=== PATIENT | male | born 1940 | race Caucasian/White ===

== ENCOUNTER → 2017-06-25 08:47 | Outpatient (CLI) | payer OTHER, SELFPAY ==
--- NOTE | 2017-06-29 12:58 | PM.PFT.1 ---
Pulmonary Function Test Referral & Results Date Patient Seen: 06/25/17 Requesting provider: Elier Phelps Results: The spirometry demonstrates an FVC of 3.23 L which is 76% of predicted. The FEV1 was measured at 2.58 L which is 85% of predicted. The FEV1/FVC ratio was 80 which is 110% of predicted. Following the administration of bronchodilator there was a 14% improvement in FEV1 and a 93% improvement in FEF 25-75%. Lung volumes show an SVC of 4.06 L which is 89% of predicted. The diffusing capacity was measured at 19.80 which is 58 percent of predicted. No hemoglobin value was provided, so no correction for potential anemia could be made, if appropriate. The maximum voluntary ventilation was normal. Interpretation: This study demonstrates mild obstructive lung disease with some evidence of benefit following bronchodilator administration, particularly in small airway flow as demonstrated by the improvement in FEF 25-75% There is a moderate reduction in diffusing capacity suggesting significant disease at the capillary alveolar level Clinical correlation suggested
== END ==
PROVIDERS: Family Provider Internal Medicine; PCP Internal Medicine; Visit Provider Internal Medicine Cardiovascular Disease
DX: R06.02 Shortness of breath (principal)
CPT/HCPCS: 94010; 94060; 94726; 94729

== ENCOUNTER → 2017-07-16 11:05 | Outpatient (CLI) | payer OTHER, SELFPAY ==
--- NOTE | 2017-07-16 | DI.CT.S_ITS ---
PROCEDURE: CT HEAD/BRAIN WO CON INDICATIONS: Memory loss TECHNIQUE: Noncontrast 4.5 mm thick angled axial sections acquired from the foramen magnum to the vertex, with coronal and sagittal reformats. For radiation dose reduction, the following was used: automated exposure control, adjustment of mA and/or kV according to patient size. COMPARISON: [facility], CT, HEAD WITHOUT CONTRAST, 06/05/2014, 12:13. [facility], CT, HEAD WITHOUT CONTRAST, 03/27/2012, 20:46. FINDINGS: Image quality: Excellent. CSF spaces: Basal cisterns are patent. No extra-axial fluid collections. The ventricles are symmetric in size and shape. Brain: No intracranial bleeds or masses. There is cerebral volume loss for age, with resultant ventricular and sulcal prominence. There are periventricular and deep white matter chronic small vessel ischemic changes. There is intracranial internal carotid artery atherosclerosis. Skull and face: Calvarium and visualized facial bones appear intact, without suspicious lesions. Sinuses: Visualized sinuses and mastoids are clear. IMPRESSION: No acute process. Volume loss and small vessel ischemic disease. Dictated by: Clarice Lucero M.D. on 07/16/2017 at 12:06 Approved by: Clarice Lucero M.D. on 07/16/2017 at 12:06
== END ==
PROVIDERS: Family Provider Internal Medicine; PCP Internal Medicine; Visit Provider Physician Assistant
DX: R41.3 Other amnesia (principal)
CPT/HCPCS: 70450

== ENCOUNTER → 2017-07-23 10:26 | Outpatient (CLI) | payer OTHER, SELFPAY | PROVIDERS: Family Provider Internal Medicine; PCP Internal Medicine; Visit Provider Physician Assistant | DX: I48.91 Unspecified atrial fibrillation (principal); Z95.2 Presence of prosthetic heart valve | CPT/HCPCS: 36415; 85610 ==

== ENCOUNTER → 2017-09-08 09:50 | Outpatient (CLI) | payer OTHER, SELFPAY ==
[2017-09-08 11:38] LABS: Add Manual Diff / Slide Review NO; Eosinophils Percent Auto 2.6 % (2-4); Hematocrit 29.4 % (41-53); Hemoglobin 9.3 g/dL (13.5-17.5); Lymphocytes Percent Auto 37.2 % (25-40); Mean Corpuscular HGB Conc 31.5 % (30-36); Mean Corpuscular Hemoglobin 24.1 PG (26-34); Mean Corpuscular Volume 76.5 fL (80-100); Monocytes Percent Auto 14.7 % (3-14); Neutrophils Absolute Auto 3400 /uL (3000-5900); Neutrophils Percent Auto 44.5 % (50-75); Platelet Count 316 X10^3/uL (150-400); Red Blood Cell Count 3.84 X10^6/uL (4.5-5.9); Red Cell Distribution Width 17.4 % (11.6-14.8); White Blood Cell Count 7.7 X10^3/uL (4.5-11.0)
[2017-09-08 12:51] LABS: Alanine Aminotransferase 21 IU/L (21-72); Albumin 4.2 g/dL (3.5-5.0); Albumin Globulin Ratio 1.6 (1.0-2.8); Alkaline Phosphatase 81 U/L (38-126); Aspartate Aminotransferase 22 IU/L (17-59); BUN Creatinine Ratio 13.5 (6-22); Bilirubin Total 0.5 mg/dL (0.2-1.3); Blood Urea Nitrogen 23 mg/dL (9-20); Calcium 9.7 mg/dL (8.4-10.2); Carbon Dioxide 24 mmol/L (22-32); Chloride 108 mmol/L (98-107); Estimated Glomerular Filt Rate 39.1 mL/min (>60); Globulin 2.7 g/dL (1.7-4.1); Glucose 88 mg/dL (80-110); HEMOLYSIS < 15 (0-50); Magnesium 2.1 mg/dL (1.6-2.3); Sodium 144 mmol/L (137-145); Total Protein 6.9 g/dL (6.3-8.2)
[2017-09-08 13:18] LABS: Thyroid Stimulating Hormone 1.46 uIU/mL (0.47-4.68)
== END ==
PROVIDERS: Family Provider Internal Medicine; PCP Internal Medicine; Visit Provider Internal Medicine Cardiovascular Disease
DX: I48.0 Paroxysmal atrial fibrillation (principal); I49.3 Ventricular premature depolarization; I10 Essential (primary) hypertension
CPT/HCPCS: 36415; 80053; 83735; 83880; 84443; 85025

== ENCOUNTER → 2017-10-04 11:32 | Outpatient (CLI) | payer OTHER, SELFPAY ==
[2017-10-04 12:12] LABS: Add Manual Diff / Slide Review NO; Basophils Percent Auto 1.3 % (0-2); Eosinophils Percent Auto 1.9 % (2-4); Hematocrit 24.9 % (41-53); Hemoglobin 7.8 g/dL (13.5-17.5); Lymphocytes Percent Auto 29.2 % (25-40); Mean Corpuscular HGB Conc 31.4 % (30-36); Mean Corpuscular Hemoglobin 22.6 PG (26-34); Mean Corpuscular Volume 71.8 fL (80-100); Monocytes Percent Auto 12.1 % (3-14); Neutrophils Absolute Auto 4400 /uL (3000-5900); Neutrophils Percent Auto 55.5 % (50-75); Platelet Count 346 X10^3/uL (150-400); Red Blood Cell Count 3.47 X10^6/uL (4.5-5.9); Red Cell Distribution Width 17.6 % (11.6-14.8)
[2017-10-04 13:54] LABS: HEMOLYSIS < 15 (0-50); Iron 13 ug/dL (49-181)
[2017-10-04 14:06] LABS: Percent Iron Saturation 3 % (20-50); Total Iron Binding Capacity 450 ug/dL (261-462); Transferrin 364 mg/dL (206-381)
[2017-10-04 14:16] LABS: BUN Creatinine Ratio 16.9 (6-22); Blood Urea Nitrogen 27 mg/dL (9-20); Calcium 9.3 mg/dL (8.4-10.2); Carbon Dioxide 25 mmol/L (22-32); Chloride 108 mmol/L (98-107); Estimated Glomerular Filt Rate 41.9 mL/min (>60); Glucose 99 mg/dL (80-110); HEMOLYSIS < 15 (0-50); Potassium 4.7 mmol/L (3.4-5.1); Sodium 142 mmol/L (137-145)
== END ==
PROVIDERS: Family Provider Internal Medicine; PCP Internal Medicine; Visit Provider Internal Medicine
DX: D64.9 Anemia, unspecified (principal); R06.00 Dyspnea, unspecified
CPT/HCPCS: 36415; 80048; 83540; 83550; 83880; 85025

== ENCOUNTER → 2017-10-08 13:39 | Outpatient (CLI) | payer OTHER, SELFPAY ==
[2017-10-08 14:10] LABS: Reticulocyte Count, Percent 2.2 % (0.87-2.60)
[2017-10-08 14:28] LABS: HEMOLYSIS < 15 (0-50); Iron 12 ug/dL (49-181)
[2017-10-08 14:50] LABS: Percent Iron Saturation 3 % (20-50); Total Iron Binding Capacity 467 ug/dL (261-462); Transferrin 373 mg/dL (206-381)
[2017-10-08 15:04] LABS: Ferritin 8.3 ng/mL (17.9-464)
== END ==
PROVIDERS: Family Provider Internal Medicine; PCP Internal Medicine; Visit Provider Internal Medicine
DX: D64.9 Anemia, unspecified (principal); R06.00 Dyspnea, unspecified
CPT/HCPCS: 36415; 82728; 83540; 83550; 85045

== ENCOUNTER 2017-10-14 10:01 | Observation (INO) | payer OTHER, SELFPAY ==
[2017-10-14] VITALS (14 sets, daily range): BP systolic 108–141; BP diastolic 50–90; PULSE 60–81; RESP 17–24; TEMP 36.3–36.8; O2SAT 92–100; BMI 26.7; BMI 26.2
--- NOTE | 2017-10-14 10:05 | ED.WEAKNESS ---
HPI - Weakness General Chief complaint: Weakness Stated complaint: bp way down Time Seen by Provider: 10/14/17 10:05 Source: patient Mode of arrival: ambulatory Limitations: no limitations History of Present Illness HPI Narrative: Patient is a 77-year-old male sent over from his primary care doctor's office for worsening weakness over the past couple months. Patient has been anemic in the past. His primary doctor was concerned for worsening anemia. Patient states that he has been told that he has been anemic. He is on Coumadin secondary to a prior history of coronary artery bypass graft and pacemaker placement. His last dose of Coumadin was last evening. He denies any change in his bowels. No black colored stools no dark-colored stools. No vomiting. Patient has been evaluated by his lemon grower and also psychiatric attendant and states that his heart and lungs are working ?fine? according to the patient. He states he does not know why his blood counts were low and his primary doctor does not know. His last colonoscopy was 10-12 years ago with polyp but he was told that there were no cancers. Has not had a repeat since then. Related Data Home Medications Medication Instructions Recorded Confirmed aspirin 81 mg PO QDAY #0 06/11/12 10/14/17 atorvastatin 40 mg PO DAILY 10/14/17 10/14/17 omeprazole 20 mg PO DAILY 10/14/17 10/14/17 oxycodone 5 mg PO TID 10/14/17 10/14/17 oxycodone 20 mg PO BID 10/14/17 10/14/17 warfarin 10/14/17 Allergies Allergy/AdvReac Type Severity Reaction Status Date / Time duloxetine [DULOXETINE] Allergy Intermediate ALMOST Verified 10/14/17 10:06 PASSED OUT ciprofloxacin [CIPROFLOXACIN] Allergy Unknown Verified 10/14/17 10:06 penicillin V [PENICILLIN V] Allergy Unknown DIZZY Verified 10/14/17 10:06 Review of Systems Constitutional Reports fatigue, Denies fever(s), Denies headache(s), Reports lethargy and Reports malaise ENT Ears, Nose, Mouth, and Throat: Denies vertigo, Denies dizziness and Denies headache(s) Cardiovascular Denies chest pain, Denies syncope, Denies palpitations and Reports dyspnea Respiratory Denies cough, Denies hemoptysis, Denies pain on inspiration, Reports dyspnea and Denies wheezing Gastrointestinal Gastrointestinal: Denies abdominal pain, Denies melena, Denies hematochezia, Denies change in stool character, Denies constipation, Denies nausea and Denies vomiting Genitourinary Denies dysuria and Denies flank pain Musculoskeletal Denies myalgias, Denies arthralgias and Denies muscle cramps Integumentary/Breasts Denies rash Neurologic Denies confusion, Denies vertigo, Denies dizziness, Denies syncope and Denies headache(s) Psychiatric Denies confusion Endocrine Reports fatigue and Denies palpitations Hematologic/Lymphatic Denies easy bleeding and Denies easy bruising Allergic/Immunologic Denies wheezing [facility] Medical History Coronary artery disease (Acute) Hypertension (Acute) Surgical History Hx of CABG (Acute) Social History Smoking Status: Former smoker Exam Initial Vital Signs Initial Vital Signs: Vital Signs Temperature 97.3 F L 10/14/17 10:06 Pulse Rate 75 10/14/17 10:06 Respiratory Rate 22 10/14/17 10:06 Pulse Oximetry 100 10/14/17 10:06 Const General: cooperative, healthy appearing, comfortable, well developed, well groomed and No acute distress Orientation: alert, awake and oriented x3 HENMT Head: normal to inspection and normocephalic Resp Effort & Inspection: normal respiratory effort Auscultation: clear to auscultation bilaterally Cardio Palpation: normal PMI Rate: regular rate Rhythm: regular rhythm Pulses: radial pulses present GI Inspection: normal to inspection and non-distended Palpation: soft, No firm, No guarding and No tender Rectal Exam: normal sphincter tone and heme negative stool Back/Spine/Pelvis Back: No CVA tenderness Skin Lesions: no lesions Rashes: no rashes Neuro General: alert, awake and oriented x3 Cognition: normal cognition Speech: speech normal Gait: normal gait Motor: muscle tone normal throughout Sensory Exam: no sensory deficits noted Extrem General: normal to inspection, capillary refill normal and No edema Psych Appearance: grossly normal and well kempt Course Orders Ordered: ED Orders 10/14/17 10:06 EKG-12 Lead Stat 08/23/18 10:07 XR chest 1V Stat 10/14/17 10:10 B Type Natriuretic Peptide Stat Complete Blood Count AUTO DIFF Stat Comprehensive Metabolic Panel Stat Lipase Stat Packed Cells Stat Partial Thromboplastin Time Stat Prothrombin Time INR Stat Troponin I Stat Type and Screen Stat Vital Signs - 8 hr 10/14/17 10:06 10/14/17 10:10 10/14/17 10:33 Temperature 97.3 F L Pulse Rate 75 67 69 Respiratory Rate 22 18 24 Blood Pressure [Left Arm] 134/70 H 118/69 Pulse Oximetry 100 100 100 10/14/17 11:11 10/14/17 11:40 10/14/17 11:42 Temperature Pulse Rate 66 72 66 Respiratory Rate 17 23 17 Blood Pressure [Left Arm] 118/80 129/57 H 139/57 H Pulse Oximetry 100 94 100 MDM - Weakness Lab Data Result diagrams: 10/14/17 10:10 10/14/17 10:10 Lab Results 10/14/17 10/14/17 10/14/17 Range/Units 10:10 10:10 10:10 WBC 7.8 (4.5-11.0) X10^3/uL RBC 3.24 L (4.5-5.9) X10^6/uL Hgb 7.1 L (13.5-17.5) g/dL Hct 22.4 L (41-53) % MCV 70.0 L (80-100) fL MCH 22.0 L (26-34) PG MCHC 31.8 (30-36) % RDW 18.4 H (11.6-14.8) % Plt Count 359 (150-400) X10^3/uL Neut % (Auto) 52.1 (50-75) % Lymph % (Auto) 32.0 (25-40) % [place] % (Auto) 13.3 (3-14) % Eos % (Auto) 1.6 L (2-4) % Baso % (Auto) 1.0 (0-2) % Neut # (Auto) 4100 (6072-8949) /uL PT 31.7 H (10.1-12.7) SECONDS INR 2.9 H (0.9-1.3) APTT 34 (26.4-36.2) SECONDS Sodium (137-145) mmol/L Potassium (3.4-5.1) mmol/L Chloride (98-107) mmol/L Carbon Dioxide (22-32) mmol/L BUN (9-20) mg/dL Creatinine (0.66-1.25) mg/dL Estimated GFR (>60) mL/min BUN/Creatinine Ratio (6-22) Glucose (80-110) mg/dL Calcium (8.4-10.2) mg/dL Total Bilirubin (0.2-1.3) mg/dL AST (17-59) IU/L ALT (21-72) IU/L Alkaline Phosphatase (38-126) U/L Troponin I (0.01-0.034) ng/mL B-Natriuretic Peptide (<100) Total Protein (6.3-8.2) g/dL Albumin (3.5-5.0) g/dL Globulin (1.7-4.1) g/dL Albumin/Globulin Ratio (1.0-2.8) Lipase (23-300) U/L Blood Type B Positive Antibody Screen Negative Crossmatch See Detail 10/14/17 10/14/17 Range/Units 10:10 10:10 WBC (4.5-11.0) X10^3/uL RBC (4.5-5.9) X10^6/uL Hgb (13.5-17.5) g/dL Hct (41-53) % MCV (80-100) fL MCH (26-34) PG MCHC (30-36) % RDW (11.6-14.8) % Plt Count (150-400) X10^3/uL Neut % (Auto) (50-75) % Lymph % (Auto) (25-40) % [place] % (Auto) (3-14) % Eos % (Auto) (2-4) % Baso % (Auto) (0-2) % Neut # (Auto) (1631-0602) /uL PT (10.1-12.7) SECONDS INR (0.9-1.3) APTT (26.4-36.2) SECONDS Sodium 142 (137-145) mmol/L Potassium 4.5 (3.4-5.1) mmol/L Chloride 109 H (98-107) mmol/L Carbon Dioxide 20 L (22-32) mmol/L BUN 26 H (9-20) mg/dL Creatinine 1.60 H (0.66-1.25) mg/dL Estimated GFR 41.9 L (>60) mL/min BUN/Creatinine Ratio 16.3 (6-22) Glucose 110 (80-110) mg/dL Calcium 9.3 (8.4-10.2) mg/dL Total Bilirubin 0.5 (0.2-1.3) mg/dL AST 24 (17-59) IU/L ALT 19 L (21-72) IU/L Alkaline Phosphatase 75 (38-126) U/L Troponin I < 0.012 (0.01-0.034) ng/mL B-Natriuretic Peptide 160.0 H (<100) Total Protein 7.1 (6.3-8.2) g/dL Albumin 4.3 (3.5-5.0) g/dL Globulin 2.8 (1.7-4.1) g/dL Albumin/Globulin Ratio 1.5 (1.0-2.8) Lipase 87 (23-300) U/L Blood Type Antibody Screen Crossmatch Imaging Data Chest x-ray: Radiologist's impression: [address] [address] XRay Report Signed Patient: Roberto Polo KMR#: [id number] : 8Acct:[id number] Age/Sex: 77 / MDate of Service: 10/14/17 Loc: ED Accession Number: [id number] Procedure: XR chest 1V Ordering Provider: Azael Ann D.O. PROCEDURE: XR CHEST 1V INDICATIONS: SHORTNESS OF BREATH TECHNIQUE: One view of the chest was acquired. COMPARISON: [facility], , CHEST 2 VIEW, 06/05/2014, 10:37. FINDINGS: Surgical changes and devices: Median sternotomy with CABG and dual-lead permanent pacemaker. Lungs and pleura: No pleural effusions or pneumothorax. Lungs are clear. Mediastinum: Mediastinal contours appear normal. Heart size is normal. Aorta is calcified and mildly tortuous. Bones and chest wall: No suspicious bony lesions. Overlying soft tissues appear unremarkable. IMPRESSION: Postoperative changes, no acute cardiopulmonary abnormality. Dictated by: Yariel tGz M.D. on 10/14/2017 at 10:29 Approved by: Yariel Gtz M.D. on 10/14/2017 at 10:3 ECG Data Attestation: I personally reviewed and interpreted this ECG as follows: Prior ECG tracings: not available for review Interpretation: atrial paced Rate is 67 Occasional PVCs Normal axis No ST T wave changes MDM Narrative Medical decision making narrative: Patient again anemic today. Has not hypotensive. Is alert and oriented x3. Uncertain as the exact etiology of his anemia. His last dose of Coumadin was last evening. He is Hemoccult negative. Has a benign abdominal exam. Is short of breath however has had normal pulmonary function test recently. I suspect that many of his symptoms are related to his anemia. Discussed the case with Dr. Millan with Internal Medicine who will admit the patient for transfusion and further workup. I discussed this with the patient. Blood consent was signed and placed on chart. Will start transfusing 2 units of packed red blood cells here in the emergency department. Patient and was at bedside expressed understanding and agreement with plan of being admitted to the hospital. Discharge Plan Departure Patient Disposition: Admitted as Observation Clinical Impression: Anemia, Coronary artery disease Admit Date/Time: 10/14/17 11:41 Admit Provider: Quinton Mercado
--- NOTE | 2017-10-14 10:17 | PC.NURSE ---
Hx of anemia. States worsening dysnea over past few months. Has need pneumo and cardio MD's for same. States those functions are good. Explained that need for blood cells to carry the oxygen
[2017-10-14 10:23] LABS: Add Manual Diff / Slide Review NO; Eosinophils Percent Auto 1.6 % (2-4); Hematocrit 22.4 % (41-53); Hemoglobin 7.1 g/dL (13.5-17.5); Mean Corpuscular HGB Conc 31.8 % (30-36); Monocytes Percent Auto 13.3 % (3-14); Neutrophils Absolute Auto 4100 /uL (3000-5900); Neutrophils Percent Auto 52.1 % (50-75); Platelet Count 359 X10^3/uL (150-400); Red Blood Cell Count 3.24 X10^6/uL (4.5-5.9); Red Cell Distribution Width 18.4 % (11.6-14.8); White Blood Cell Count 7.8 X10^3/uL (4.5-11.0)
[2017-10-14 10:30] LABS: INR 2.9 (0.9-1.3); Prothrombin Time 31.7 SECONDS (10.1-12.7)
[2017-10-14 10:33] LABS: PTT Partial Thromboplastin Tim 34 SECONDS (26.4-36.2)
[2017-10-14 10:34] LABS: Alanine Aminotransferase 19 IU/L (21-72); Albumin 4.3 g/dL (3.5-5.0); Albumin Globulin Ratio 1.5 (1.0-2.8); Alkaline Phosphatase 75 U/L (38-126); Aspartate Aminotransferase 24 IU/L (17-59); BUN Creatinine Ratio 16.3 (6-22); Bilirubin Total 0.5 mg/dL (0.2-1.3); Blood Urea Nitrogen 26 mg/dL (9-20); Calcium 9.3 mg/dL (8.4-10.2); Carbon Dioxide 20 mmol/L (22-32); Chloride 109 mmol/L (98-107); Estimated Glomerular Filt Rate 41.9 mL/min (>60); Globulin 2.8 g/dL (1.7-4.1); Glucose 110 mg/dL (80-110); HEMOLYSIS < 15 (0-50); Lipase 87 U/L (23-300); Potassium 4.5 mmol/L (3.4-5.1); Sodium 142 mmol/L (137-145); Total Protein 7.1 g/dL (6.3-8.2)
[2017-10-14 10:47] LABS: Troponin I < 0.012 ng/mL (0.01-0.034)
--- NOTE | 2017-10-14 13:25 | PM.HP.1 ---
History of Present Illness Date Patient Seen: 10/14/17 Time Patient Seen: 12:25 Chief complaint: bp way down Narrative: Kirt malone 77-year-old gentleman was sent from Dr. Shaikh office with a history of progressive tiredness fatigue weight gain of 20 lb shortness of breath on minimal exertion over the last few months but particularly worse in the last few days He has been seen in the cylinder head assembler's office not too long ago according to him and had workup done and was told everything was fine he also had pulmonary function test and that was said to be normal as well He has a history of anemia being on Coumadin and he had the iron supplements but apparently his hemoglobin is dropped from 9 a few months ago to 7 now he denies any melena hematemesis or any abdominal pain but he does complain of abdominal bloating no change in his appetite though is deliberately not eating much because he does not want to gain any more weight Patient History Medical History Coronary artery disease (Acute) Hypertension (Acute) Surgical History Hx of CABG (Acute) Family & Social History Family History: Reviewed 10/14/17 by Quinton Mercado MD Tobacco & Substance use: Smoking Status Former smoker alcohol intake frequency holiday/special occasion Substance Use Type does not use Meds Home Medications Medication Instructions Recorded Confirmed Type aspirin 81 mg PO QDAY #0 06/11/12 10/14/17 History atorvastatin 40 mg PO DAILY 10/14/17 10/14/17 History omeprazole 20 mg PO DAILY 10/14/17 10/14/17 History oxycodone 5 mg PO TID 10/14/17 10/14/17 History oxycodone 20 mg PO BID 10/14/17 10/14/17 History warfarin 10/14/17 History Allergies Allergy/AdvReac Type Severity Reaction Status Date / Time duloxetine [DULOXETINE] Allergy Intermediate ALMOST Verified 10/14/17 10:06 PASSED OUT ciprofloxacin [CIPROFLOXACIN] Allergy Unknown Verified 10/14/17 10:06 penicillin V [PENICILLIN V] Allergy Unknown DIZZY Verified 10/14/17 10:06 Review of Systems Review of Systems He does not complain of any chest pain or wheezing cough any change in bowel habits All 12 systems were reviewed with no positive symptoms other than the 1 in the history of present illness Exam Vital Signs (past 8 hours): - 10/14/17 10:06 10/14/17 10:10 10/14/17 10:33 Temperature 97.3 F L Pulse Rate 75 67 69 Respiratory Rate 22 18 24 Blood Pressure [Left Arm] 134/70 H 118/69 Pulse Oximetry 100 100 100 10/14/17 11:11 10/14/17 11:40 10/14/17 11:42 Temperature Pulse Rate 66 72 66 Respiratory Rate 17 23 17 Blood Pressure [Left Arm] 118/80 129/57 H 139/57 H Pulse Oximetry 100 94 100 10/14/17 12:34 Temperature Pulse Rate 81 Respiratory Rate 18 Blood Pressure [Left Arm] 128/82 H Pulse Oximetry 92 Oxygen Delivery Method Room Air Const General: cooperative, healthy appearing, comfortable and well developed Orientation: alert, awake and oriented x3 HENMT Head: normal to inspection Ears: hearing grossly normal bilaterally Nose: external nose normal Face and sinus: normal facial exam Eyes General: appearance normal, both eyes and all related structures Eyelids: eyelids normal Conjunctivae: conjunctivae normal Sclera: sclerae normal Pupils: PERRL EOM: EOM intact bilaterally Neck Neck: normal visual inspection Thyroid: thyroid normal Resp Effort & Inspection: normal respiratory effort and able to speak in complete sentences Auscultation: clear to auscultation bilaterally Cardio Palpation: normal PMI Rate: regular rate Rhythm: regular rhythm Heart Sounds: S1 normal and S2 normal GI Inspection: normal to inspection Palpation: soft and no hepatosplenomegaly Skin General: no rashes or lesions noted Neuro General: alert, awake and oriented x3 Cranial Nerves: CN's II-XI intact bilaterally Cognition: normal cognition Speech: speech normal Motor: muscle tone normal throughout Extrem Other: edema + [employer] Psych Appearance: grossly normal Speech and Movement: speech and movement normal Mood: congruent mood Affect: normal affect Attitude: cooperative Thought Process: normal Thought Content: normal Judgment: judgment good Objective Labs Result Diagrams: 10/14/17 10:10 10/14/17 10:10 Labs: Laboratory Results - last 24 hr 10/14/17 10/14/17 10/14/17 10:10 10:10 10:10 WBC 7.8 RBC 3.24 L Hgb 7.1 L Hct 22.4 L MCV 70.0 L MCH 22.0 L MCHC 31.8 RDW 18.4 H Plt Count 359 Neut % (Auto) 52.1 Lymph % (Auto) 32.0 [place] % (Auto) 13.3 Eos % (Auto) 1.6 L Baso % (Auto) 1.0 Neut # (Auto) 4100 PT 31.7 H INR 2.9 H APTT 34 Sodium Potassium Chloride Carbon Dioxide BUN Creatinine Estimated GFR BUN/Creatinine Ratio Glucose Calcium Total Bilirubin AST ALT Alkaline Phosphatase Troponin I B-Natriuretic Peptide Total Protein Albumin Globulin Albumin/Globulin Ratio Lipase Blood Type B Positive Antibody Screen Negative Crossmatch See Detail 10/14/17 10/14/17 10:10 10:10 WBC RBC Hgb Hct MCV MCH MCHC RDW Plt Count Neut % (Auto) Lymph % (Auto) [place] % (Auto) Eos % (Auto) Baso % (Auto) Neut # (Auto) PT INR APTT Sodium 142 Potassium 4.5 Chloride 109 H Carbon Dioxide 20 L BUN 26 H Creatinine 1.60 H Estimated GFR 41.9 L BUN/Creatinine Ratio 16.3 Glucose 110 Calcium 9.3 Total Bilirubin 0.5 AST 24 ALT 19 L Alkaline Phosphatase 75 Troponin I < 0.012 B-Natriuretic Peptide 160.0 H Total Protein 7.1 Albumin 4.3 Globulin 2.8 Albumin/Globulin Ratio 1.5 Lipase 87 Blood Type Antibody Screen Crossmatch Assessment & Plan Plan: Assessment/Plan Narrative: 1. Progressive fatigue cardiac and pulmonary causes low likelihood as he has been recently worked up by his cylinder head assembler 2. Severe anemia likely due to chronic blood loss due to being on Coumadin Is getting blood transfusion started in the ER will get the hemoglobin up to 10 g in view of his underlying coronary artery disease status post CABG 3.Chronic atrial fibrillation Weight gain most likely due to edema and echocardiogram if not done within the last 6 months will be ordered and abdominal workup may also be needed to rule out liver because of edema Time Spent With Patient Time with patient: Greater than 35 minutes
--- NOTE | 2017-10-14 14:21 | PC.ADMIT ---
Admission Note: Patient to room 103 from ER, walked from stretcher to bed, steady on feet. Alert and oriented x3. Denies dizziness, reports feeling like I can't get enough air in. Oxygen sats 98% RA. First unit of blood started and is infusing without issue. Oriented to room and to call light/bed/tv controls. Instructed to use call light for standby-assist when up - acknowledges understanding. The patient,Roberto Polo,77 y/o, was given written information regarding hospital policies, unit procedures and contact persons. Patient's smoking status: Former smoker. Vital Signs - 8 hr 10/14/17 10:06 10/14/17 10:10 10/14/17 10:33 Temperature 97.3 F L Pulse Rate 75 67 69 Respiratory Rate 22 18 24 Blood Pressure Blood Pressure [Left Arm] 134/70 H 118/69 Pulse Oximetry 100 100 100 10/14/17 11:11 10/14/17 11:40 10/14/17 11:42 Temperature Pulse Rate 66 72 66 Respiratory Rate 17 23 17 Blood Pressure Blood Pressure [Left Arm] 118/80 129/57 H 139/57 H Pulse Oximetry 100 94 100 10/14/17 12:34 10/14/17 13:25 10/14/17 13:40 Temperature 97.9 F 97.9 F Pulse Rate 81 78 79 Respiratory Rate 18 20 18 Blood Pressure 108/76 141/90 H Blood Pressure [Left Arm] 128/82 H Pulse Oximetry 92 98
[2017-10-14] MEDS: PANTOPRAZOLE 20 MG TABLET PO (16:49)
[2017-10-14] MEDS: FUROSEMIDE 20 MG/2 ML VIAL IV (17:21)
[2017-10-14 21:22] LABS: Add Manual Diff / Slide Review NO; Basophils Percent Auto 1.1 % (0-2); Hematocrit 29.3 % (41-53); Hemoglobin 9.6 g/dL (13.5-17.5); Lymphocytes Percent Auto 34.4 % (25-40); Mean Corpuscular HGB Conc 32.9 % (30-36); Mean Corpuscular Hemoglobin 23.9 PG (26-34); Mean Corpuscular Volume 72.6 fL (80-100); Monocytes Percent Auto 14.8 % (3-14); Neutrophils Absolute Auto 4500 /uL (3000-5900); Neutrophils Percent Auto 47.7 % (50-75); Platelet Count 301 X10^3/uL (150-400); Red Blood Cell Count 4.03 X10^6/uL (4.5-5.9); Red Cell Distribution Width 20.8 % (11.6-14.8); White Blood Cell Count 9.3 X10^3/uL (4.5-11.0)
[2017-10-14 21:39] LABS: Anisocytosis 2+; Microcytosis 2+
--- NOTE | 2017-10-14 21:42 | PC.NURSE ---
cathryn note Pt denies SOB at rest. 2 units PRBCs infused with good tolerance. Pt ate 100% evening meal. large volume urine output after 20 mg IV Lasix.
[2017-10-14] MEDS: ATORVASTATIN 20 MG TABLET 40 MG PO (21:53)
[2017-10-14] MEDS: OXYCODONE ER 10 MG TAB 20 MG PO (21:53)
[2017-10-15] VITALS (12 sets, daily range): BP systolic 91–139; BP diastolic 43–76; PULSE 57–91; RESP 14–20; TEMP 36.2–37.3; O2SAT 95–98
--- NOTE | 2017-10-15 01:41 | PC.NURSE ---
Ore Washer Note: Alert, oriented X3. Steady on his feet. Voiding in urinal without difficulty. Saline lock in place in rt wrist. Pt denies pain or discomfort, and is resting in bed.
[2017-10-15] MEDS: PANTOPRAZOLE 20 MG TABLET PO (06:41)
[2017-10-15] MEDS: OXYCODONE ER 10 MG TAB 20 MG PO ×2 (08:36→22:35)
--- NOTE | 2017-10-15 09:08 | CM.DANOTE ---
DCP: Case received, EMR reviewed and met with patient. DCP template completed with information currently available. Patient is a 77 year old male who admitted yesterday to the care of the hospitalist team. PCP: Dr. Mcmillan. Payer: confirmed: Medicare/[employer], Self Pay Patient came to hospital due to symptoms of weakness. Was noted to have decreased blood pressure, secondary to anemia. Patient had driven himself here in his vehicle. P: Plan is for patient to return home when stable. DCP will continue to assess. Loretta Holder RN/[employer]
[2017-10-15] MEDS: IRON SUCROSE 100 MG in SODIUM CHLORIDE 0.9% 100 ML 420 ML IV ×2 (10:59→11:25)
--- NOTE | 2017-10-15 11:11 | PC.NURSE ---
pt showered and ambulated in ICU [place]. tolerated well. sitting in chair and reported wooziness. BP 114/34. Dr. Mercado in to see pt. iron infusing initiated.
--- NOTE | 2017-10-15 12:20 | P.DS_ITS ---
History of Present Illness Date Patient Seen: 10/16/17 Time Patient Seen: 11:14 Chief complaint: bp way down Narrative: Kirt malone 77-year-old gentleman was sent from Dr. Shaikh office with a history of progressive tiredness fatigue weight gain of 20 lb shortness of breath on minimal exertion over the last few months but particularly worse in the last few days He has been seen in the parts counter clerk's office not too long ago according to him and had workup done and was told everything was fine he also had pulmonary function test and that was said to be normal as well He has a history of anemia being on Coumadin and he has iron defeciency but apparently his hemoglobin is dropped from 9 a few months ago to 7 now he denies any melena hematemesis or any abdominal pain but he does complain of abdominal bloating no change in his appetite though is deliberately not eating much because he does not want to gain any more weight He gives a hx of IBS symptoms cycle now and then according to him Discharge Providers Date of admission: 10/14/17 11:41 Primary care physician: Pee Cornell MD Discharge provider: Laz Mercado MD Summary Discharge Diagnosis: 1. Severe anemia requiring blood transfusion iron deficiency profile on iron studies no obvious overt bleeding or GI bleed confirm 2. History of coronary artery disease status post CABG about 2 years ago 3. Chronic atrial fibrillation also has cardiac pacemaker 4. History of irritable bowel syndrome 5. Chronic low back pain requiring OxyContin long-acting insulin short-acting Hospital Course: This very pleasant gentleman was sent from Dr. CORNELL'S office with a progressive fatigue tiredness and was found to be quite pale and anemic his hemoglobin that dropped from 9-7 within the last few months though he does not complain of any melena hematemesis or other overt bleeding He has a history of colon polyps that is found in on a colonoscopy 10 years ago has not had any follow-up colonoscopy yet After admission he had 2 units of blood transfusion his hemoglobin up to 9.6 and this morning he feels much better overall not as fatigued he had a shower and feels even better now He is leery about going on oral iron supplement because he thinks lot of his people that she knows of with [facility] INR had more trouble than help Addendum UE was given an IV Venofer 200 mg X 2 DAYS HGB IS STAYING AT 10 GM THE PATIENT WOULD REQUIRE WORKUP WITH UPPER GI AND LOWER GI ENDOSCOPY THE LAST COLONOSCOPY WAS 10 YEARS AGO PATIENT DOES NOT WANT THAT DONE AT THIS TIME AN INPATIENT AND WILL BE DISCUSSING IT WITH DR. CORNELL WHEN HE SEES HIM IN A WEEK' S TIME Exam Vital Signs (past 8 hours): - 10/15/17 04:23 10/15/17 08:00 10/15/17 09:19 Temperature 97.3 F L 97.9 F Pulse Rate 57 L 57 L Respiratory Rate 16 16 Blood Pressure 121/56 H 115/53 L Pulse Oximetry 97 97 95 Oxygen Delivery Method Room Air Oxygen Flow Rate 0 Const General: cooperative, healthy appearing and comfortable Orientation: alert, awake and oriented x3 HENMT Head: normal to inspection Ears: hearing grossly normal bilaterally Nose: external nose normal Face and sinus: normal facial exam Eyes General: appearance normal, both eyes and all related structures Eyelids: eyelids normal Conjunctivae: conjunctivae normal Sclera: sclerae normal Pupils: PERRL EOM: EOM intact bilaterally Neck Neck: normal visual inspection Thyroid: thyroid normal Chest Other: HAS PACEMAKER IN SITU Resp Effort & Inspection: normal respiratory effort, able to speak in complete sentences, no respiratory distress and no use of accessory muscles Auscultation: clear to auscultation bilaterally GI Inspection: normal to inspection Palpation: soft and no hepatosplenomegaly Skin General: no rashes or lesions noted Neuro General: alert, awake, oriented x3 and no meningeal signs Cranial Nerves: CN's II-XI intact bilaterally Cognition: normal cognition Motor: muscle tone normal throughout Objective Labs Result Diagrams: 10/16/17 04:40 10/15/17 14:00 Labs: Laboratory Results - last 24 hr 10/14/17 10/14/17 10/14/17 10:10 14:10 21:11 WBC 9.3 RBC 4.03 L Hgb 9.6 L Hct 29.3 L MCV 72.6 L MCH 23.9 L MCHC 32.9 RDW 20.8 H Plt Count 301 Neut % (Auto) 47.7 L Lymph % (Auto) 34.4 [place] % (Auto) 14.8 H Eos % (Auto) 2.0 Baso % (Auto) 1.1 Neut # (Auto) 4500 RBC Morphology Not Reportable Anisocytosis 2+ H Microcytosis 2+ H Nasal Screen MRSA (PCR) Negative for mrsa Blood Type B Positive Antibody Screen Negative Crossmatch See Detail Discharge Plan Discharge Plan Patient Disposition: Home Provider Discharge Instructions Diet: Regular Activity: AD SARA Discharge Data Primary Care Provider: Pee Cornell Attending Provider: Quinton Mercado Admit Date/Time: 10/14/17 11:41 Quality VTE Deep Vein Thrombosis/Pulmonary Embolism Present on Admission: No
--- NOTE | 2017-10-15 13:15 | P.PN_ITS ---
Subjective Date Patient Seen: 10/15/17 Time Patient Seen: 10:08 Interval history: This gentleman admitted from Dr. Shaikh office with a history of progressive fatigue and tiredness this found to be anemic workup in the office is reveal iron deficiency though he does not complain of any overt bleeding or melena He is a colonoscopy 10 years ago or so to have some polyp she has not had any follow-up colonoscopies He reports having some IBS irritable bowel syndrome with cycles on often these apparently in the off period now This morning he reports feeling better than when he came in after the blood transfusions for later on after his OxyContin he started feeling woozy dizzy to go back to bed from his chair Exam Vital Signs (past 8 hours): - 10/15/17 08:00 10/15/17 09:19 10/15/17 12:14 Temperature 97.9 F 98.4 F Pulse Rate 57 L 72 Respiratory Rate 16 16 Blood Pressure 115/53 L 128/74 H Pulse Oximetry 97 95 97 Oxygen Delivery Method Room Air Oxygen Flow Rate 0 Const General: cooperative, healthy appearing, comfortable and well developed Orientation: alert, awake and oriented x3 HENMT Head: normal to inspection Ears: hearing grossly normal bilaterally Nose: external nose normal Face and sinus: normal facial exam Eyes General: appearance normal, both eyes and all related structures Eyelids: eyelids normal Conjunctivae: conjunctivae normal Sclera: sclerae normal Pupils: PERRL EOM: EOM intact bilaterally Neck Neck: normal visual inspection Thyroid: thyroid normal Resp Effort & Inspection: normal respiratory effort, able to speak in complete sentences, no respiratory distress and no use of accessory muscles Auscultation: clear to auscultation bilaterally Cardio Rate: regular rate Rhythm: regular rhythm Heart Sounds: S1 normal and S2 normal GI Inspection: normal to inspection Palpation: soft and no hepatosplenomegaly Skin General: no rashes or lesions noted Neuro General: alert, awake and oriented x3 Cranial Nerves: CN's II-XI intact bilaterally Cognition: normal cognition Gait: normal gait Motor: muscle tone normal throughout Extrem Other: nil edema Psych Mental Status: mental status grossly normal Affect: normal affect Attitude: cooperative Thought Process: normal Thought Content: normal Judgment: judgment good Objective Labs Result Diagrams: 10/14/17 21:11 10/14/17 10:10 Labs: Laboratory Results - last 24 hr 08/10/14/17 10/14/17 10:10 14:10 21:11 WBC 9.3 RBC 4.03 L Hgb 9.6 L Hct 29.3 L MCV 72.6 L MCH 23.9 L MCHC 32.9 RDW 20.8 H Plt Count 301 Neut % (Auto) 47.7 L Lymph % (Auto) 34.4 [place] % (Auto) 14.8 H Eos % (Auto) 2.0 Baso % (Auto) 1.1 Neut # (Auto) 4500 RBC Morphology Not Reportable Anisocytosis 2+ H Microcytosis 2+ H Nasal Screen MRSA (PCR) Negative for mrsa Blood Type B Positive Antibody Screen Negative Crossmatch See Detail Assessment & Plan Plan: Assessment/Plan Narrative: 1. Severe fatigue and tiredness due to severe anemia iron deficiency most likely chronic blood loss Will require GI workup with upper GI and lower GI endoscopy 2. Severe anemia requiring blood transfusion will follow the H&H and transfuse as needed 3. Iron deficiency patient not very keen to go on oral iron supplement because was body has suffered from mother's side effects so the patient was given IV Venofer 200 mg now 4. History of coronary artery disease status post CABG 2 years ago 5. Chronic atrial fibrillation on Coumadin which has been held now is on 6. Cardiac pacemaker in-situ Time Spent With Patient Time with patient: 25 - 35 minutes Quality VTE Deep Vein Thrombosis/Pulmonary Embolism Present on Admission: No
[2017-10-15 14:20] LABS: INR 2.4 (0.9-1.3); Prothrombin Time 26.4 SECONDS (10.1-12.7)
[2017-10-15 14:22] LABS: Hematocrit 30.8 % (41-53)
[2017-10-15 14:28] LABS: Albumin 3.9 g/dL (3.5-5.0); Albumin Globulin Ratio 1.4 (1.0-2.8); Alkaline Phosphatase 75 U/L (38-126); Aspartate Aminotransferase 23 IU/L (17-59); BUN Creatinine Ratio 15.6 (6-22); Bilirubin Total 0.8 mg/dL (0.2-1.3); Blood Urea Nitrogen 25 mg/dL (9-20); Carbon Dioxide 27 mmol/L (22-32); Estimated Glomerular Filt Rate 41.9 mL/min (>60); Globulin 2.7 g/dL (1.7-4.1); Glucose 126 mg/dL (80-110); HEMOLYSIS < 15 (0-50); Total Protein 6.6 g/dL (6.3-8.2)
[2017-10-15 15:12] LABS: Alanine Aminotransferase 20 IU/L (21-72); Chloride 102 mmol/L (98-107); Potassium 4.2 mmol/L (3.4-5.1); Sodium 139 mmol/L (137-145)
--- NOTE | 2017-10-15 19:28 | PC.NURSE ---
cathryn note Pt has good appetite. Pt says he just does not feel his best. No specific complaints. B/P stable.
[2017-10-15] MEDS: DOCUSATE 100 MG CAPSULE PO (22:34)
[2017-10-15] MEDS: ATORVASTATIN 20 MG TABLET 40 MG PO (22:34)
[2017-10-15] MEDS: SODIUM CHLORIDE 0.9% FLUSH 10 ML IV (22:35)
[2017-10-16 04:00] VITALS: O2SAT 96
[2017-10-16 04:51] VITALS: BP 120/56; PULSE 60; RESP 17; TEMP 36.8; O2SAT 95
[2017-10-16 05:10] LABS: Add Manual Diff / Slide Review NO; Basophils Percent Auto 1.5 % (0-2); Eosinophils Percent Auto 3.6 % (2-4); Hematocrit 31.4 % (41-53); Hemoglobin 10.2 g/dL (13.5-17.5); Lymphocytes Percent Auto 28.5 % (25-40); Mean Corpuscular HGB Conc 32.5 % (30-36); Mean Corpuscular Hemoglobin 23.8 PG (26-34); Mean Corpuscular Volume 73.4 fL (80-100); Neutrophils Absolute Auto 4200 /uL (3000-5900); Neutrophils Percent Auto 52.4 % (50-75); Platelet Count 302 X10^3/uL (150-400); Red Blood Cell Count 4.28 X10^6/uL (4.5-5.9); Red Cell Distribution Width 21.1 % (11.6-14.8); White Blood Cell Count 8.1 X10^3/uL (4.5-11.0)
[2017-10-16 05:28] LABS: Anisocytosis 2+; Poikilocytosis 1+
[2017-10-16] MEDS: PANTOPRAZOLE 20 MG TABLET PO (06:21)
[2017-10-16 08:18] VITALS: BP 127/64; PULSE 86; RESP 16; TEMP 37.1; O2SAT 95
[2017-10-16 08:29] VITALS: O2SAT 95
[2017-10-16] MEDS: OXYCODONE ER 10 MG TAB 20 MG PO (08:45)
[2017-10-16] MEDS: DOCUSATE 100 MG CAPSULE PO (08:56)
[2017-10-16] MEDS: IRON SUCROSE 200 MG in SODIUM CHLORIDE 0.9% 100 ML 220 ML IV (10:46)
[2017-10-16 12:22] VITALS: BP 110/71; PULSE 73; RESP 16; TEMP 36.7; O2SAT 97
== END 2017-10-16 13:30 | disposition home or self-care (01) ==
LOC: ED 11:32 → AC 11:42 → ICU 13:16
PROVIDERS: Admitting Provider Internal Medicine; Emergency Provider Emergency Medicine; PCP Internal Medicine; Visit Provider Internal Medicine
DX: D64.9 Anemia, unspecified (principal); R53.1 Weakness; Z95.1 Presence of aortocoronary bypass graft; Z95.0 Presence of cardiac pacemaker; R06.02 Shortness of breath; I25.10 Atherosclerotic heart disease of native coronary artery without angina pectoris; Z87.891 Personal history of nicotine dependence; I10 Essential (primary) hypertension; I48.2 Chronic atrial fibrillation
CPT/HCPCS: 36415; 36430; 36591; 71045; 80053; 83690; 83880; 84484; 85014; 85018; 85025; 85610; 85730; 86850; 86900; 86901; 87797; 93005; 93010; 93041; 94762; 99283; 99285; G0378; P9016; J1756; J1940

== ENCOUNTER → 2017-11-02 16:26 | Outpatient (CLI) | payer OTHER, SELFPAY ==
[2017-10-21 10:33] VITALS: BMI 26.2
[2017-11-02 17:11] LABS: Add Manual Diff / Slide Review NO; Basophils Percent Auto 1.1 % (0-2); Eosinophils Percent Auto 3.5 % (2-4); Hematocrit 38.3 % (41-53); Hemoglobin 12.1 g/dL (13.5-17.5); Mean Corpuscular HGB Conc 31.6 % (30-36); Mean Corpuscular Hemoglobin 25.5 PG (26-34); Mean Corpuscular Volume 80.8 fL (80-100); Monocytes Percent Auto 11.6 % (3-14); Neutrophils Absolute Auto 4000 /uL (3000-5900); Neutrophils Percent Auto 49.8 % (50-75); Platelet Count 284 X10^3/uL (150-400); Red Blood Cell Count 4.74 X10^6/uL (4.5-5.9); Red Cell Distribution Width 28.5 % (11.6-14.8); White Blood Cell Count 8.1 X10^3/uL (4.5-11.0)
[2017-11-02 17:21] LABS: HEMOLYSIS < 15 (0-50); Iron 206 ug/dL (49-181)
[2017-11-02 17:31] LABS: Percent Iron Saturation 58 % (20-50); Total Iron Binding Capacity 353 ug/dL (261-462); Transferrin 289 mg/dL (206-381)
[2017-11-02 18:37] LABS: Anisocytosis 3+; Hypochromasia 1+; Microcytosis 1+
== END ==
PROVIDERS: PCP Internal Medicine; Visit Provider Internal Medicine
DX: D50.9 Iron deficiency anemia, unspecified (principal)
CPT/HCPCS: 36415; 83540; 83550; 85025

== ENCOUNTER 2017-11-22 07:37 | Day surgery (SDC) | payer OTHER, SELFPAY ==
[2017-10-21 10:33] VITALS: BMI 26.2
[2017-11-22] VITALS (7 sets, daily range): BP systolic 117–141; BP diastolic 71–92; PULSE 64–86; RESP 12–16; TEMP 36.1–36.7; O2SAT 94–96; BMI 26.4
--- NOTE | 2017-11-22 | PATH_ITS ---
[facility] Accession Number: [id number] . 01 Material submitted: . PART A: ANTRAL BIOPSIES PART B: SIGMOID POLYP . 02 Diagnosis: A. Antrum, Biopsies: Gastric antral and body mucosa with no diagnostic abnormality. No evidence of Helicobacter organisms on H/E stain. Negative for intestinal metaplasia, dysplasia or malignancy. . B. Sigmoid Colon Polyp: Tubular adenoma. MRV/11/23/2017 . 02 Electronically signed: . Nas Welsh MD, PhD, Pathologist NPI- [id number] . 01 Gross description: . Received two formalin-filled containers, both labeled with the patient's name: . A. In a container labeled antral, are two 0.1-0.2 cm portions of tissue, entirely submitted in cassette A. B. In a container labeled sigmoid polyp, are three 0.1-0.3 cm portions of tissue, entirely submitted in cassette B. ([id number]) /FRR . 02 Pathologist provided ICD-10: D12.5, R10.13 . 02 CPT . 386519, 731998 Performed at: 01 [facility] [address] [id number] MD Demetrius Denis MD Phone: [phone] Performed at: 02 [facility] [address] [place], [place] [id number] MD Prateek Gomes MD Phone: [phone]
[2017-11-22] MEDS: SODIUM CHLORIDE 0.9% 1,000 ML 200 ML IV (08:13)
--- NOTE | 2017-11-22 08:15 | PM.PREOP ---
Pre-operative Note Interval Note Pre-op Check: Yes History & Physical Reviewed by Physician and Yes Exam Performed Changes: No H&P completed within 30 days and has changed as indicated here:: Patient seen and examined once again. History physical examination as documented on the chart October 27, 2017 has not changed. Proceed today with EGD and colonoscopy as planned for severe anemia. ASA Class (for procedural sedation): II
[2017-11-22] MEDS: TETRACAINE/BENZOCAINE/BUTAMBEN (CETACAINE) BOTTLE 1 SPRAY TOP (08:36)
[2017-11-22] MEDS: LIDOCAINE 4% SOLN 50 ML 20 ML TOP (08:37)
[2017-11-22] MEDS: MIDAZOLAM 5 MG/5 ML VIAL IV (08:50)
[2017-11-22] MEDS: fentaNYL 250 MCG/5 ML INJ IV (08:53)
--- NOTE | 2017-11-22 09:14 | P.OP.ENDO_ITS ---
Operative Date/Time/Diagnoses Date of procedure: 11/22/17 Time of procedure: 09:10 Pre-op diagnosis: Severe iron deficiency anemia Post-op diagnosis: other (Mild antral gastritis, diverticulosis, sigmoid polyp, and cecal arteriovenous malformation) Procedure & Clinicians Study performed: 1. Sedation per surgeon 2. Esophagogastroduodenoscopy with cold forceps biopsy 3. Colonoscopy with hot snare ablation of AVM and cold forceps polypectomy Same procedure as scheduled: Yes Indications: 77-year-old male who presented with severe progressive iron- deficiency anemia. He was recommended to undergo EGD and colonoscopy Surgeon: Pee Guzman Procedure Notes Procedure in detail: After obtaining informed consent, the patient was brought to the GI suite and placed in the left lateral decubitus position on the examination table. After placement of appropriate monitors, the patient was given incremental doses of Versed and Fentanyl until an appropriate level of sedation was achieved. A time out was held per SCOAP protocol. A bite block was gently placed between the patient's teeth. The endoscope was lubricated and then passed into the patient's posterior oropharynx. The esophagus was cannulated under direct vision and the scope was passed to the second portion of the duodenum without difficulty. The scope was then withdrawn with careful examination of all areas of the upper GI tract and mucosa. In the stomach, the instrument was retroflexed and the GE junction examined. The scope was straightened and the procedure continued with examination of the remainder of the upper GI tract. Findings are noted above. Air was aspirated from the stomach and the endoscope gently removed from the esophagus. Table was turned 180? for colonoscopy. A digital rectal examination was performed and did not reveal any masses or obstructing lesions. The colonoscope was gently passed into the patient's anus and the entire colon navigated to the level of the cecum with minimal difficulty. 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 Area was ablated with hot snare. Once in the cecum, the scope was withdrawn being sure to go before and beyond all mucosal folds and prominences and get an excellent examination. The findings are noted above. At the level of the rectal vault, the scope was retroflexed and the internal anal canal was examined. The scope was straightened and air aspirated from the colon. The instrument was removed from the patient's body and the procedure was concluded. The patient was allowed to awaken from sedation without difficulty and taken to the post-anesthesia care unit in good condition. Scope withdrawal time: 12:12 min Sedation minutes: 35 Findings: diverticulosis, gastritis, hiatal hernia (Small and clinically insignificant), polyp (Near rectosigmoid junction) and vascular ectasias ( Located in the cecum, subsequently ablated) Specimen(s): other (1. Antral biopsies 2. Sigmoid polyp) Complications: none Recommendations: High fiber diet, No ASA/NSAIDS, Will call with biopsy results and Other recommendation (No need for further colonoscopy in the absence of any new symptoms or bleeding) Plan for aftercare: 1. Discharge home 2. If patient has significant bleeding in the future would recommend potential angiography given that the arteriovenous malformation is the likely source of bleeding. Follow up: as needed Disposition: PACU
--- NOTE | 2017-11-22 09:29 | SUR.PHASEI ---
Cardiac rhythm with frequent unifocal PVC's. Underlying rhythm appears to be sinus as p waves are visualized altho one episode of what appearred to be PAT was seen. Report from Endo RN was frequent arrythmia seen throughout procedure.
--- NOTE | 2017-11-22 09:41 | SUR.PHASEII ---
call made to family that patient ready to discharge and message was left on machine. No family at this time yet in waiting room.
--- NOTE | 2017-11-22 09:52 | SUR.PHASEII ---
Spoke with Anisha regarding discharge instructions.
== END 2017-11-22 10:05 | disposition home or self-care (01) ==
PROVIDERS: PCP Internal Medicine; Visit Provider Surgery
PROC: 0DJD8ZZ Inspection of Lower Intestinal Tract, Via Natural or Artificial Opening Endoscopic (ICD-10-PCS; CPT 45378; principal; 2017-11-22 08:45)
PROC: 0DJ08ZZ Inspection of Upper Intestinal Tract, Via Natural or Artificial Opening Endoscopic (ICD-10-PCS; CPT 43235; 2017-11-22 08:45)
DX: D50.9 Iron deficiency anemia, unspecified (principal); K29.70 Gastritis, unspecified, without bleeding; K57.30 Diverticulosis of large intestine without perforation or abscess without bleeding; D12.5 Benign neoplasm of sigmoid colon; K44.9 Diaphragmatic hernia without obstruction or gangrene; Z79.01 Long term (current) use of anticoagulants; Z86.73 Personal history of transient ischemic attack (TIA), and cerebral infarction without residual deficits; Z95.0 Presence of cardiac pacemaker; I10 Essential (primary) hypertension; K21.9 Gastro-esophageal reflux disease without esophagitis; I25.10 Atherosclerotic heart disease of native coronary artery without angina pectoris
CPT/HCPCS: 45385; 45380; 43239; 99152; 99153; J2250; J3010

== ENCOUNTER → 2017-12-16 10:47 | Outpatient (CLI) | payer OTHER, SELFPAY ==
[2017-10-21 10:33] VITALS: BMI 26.2
== END ==
PROVIDERS: Family Provider Internal Medicine Cardiovascular Disease; PCP Internal Medicine; Visit Provider Internal Medicine
DX: D64.9 Anemia, unspecified (principal)

== ENCOUNTER → 2017-12-16 10:56 | Outpatient (CLI) | payer OTHER, SELFPAY ==
[2017-10-21 10:33] VITALS: BMI 26.2
[2017-12-16 11:43] LABS: Add Manual Diff / Slide Review NO; Basophils Percent Auto 1.1 % (0-2); Eosinophils Percent Auto 8.1 % (2-4); Hematocrit 43.2 % (41-53); Lymphocytes Percent Auto 33.3 % (25-40); Mean Corpuscular HGB Conc 32.4 % (30-36); Mean Corpuscular Hemoglobin 26.5 PG (26-34); Mean Corpuscular Volume 81.6 fL (80-100); Monocytes Percent Auto 14.4 % (3-14); Neutrophils Absolute Auto 3400 /uL (3000-5900); Neutrophils Percent Auto 43.1 % (50-75); Platelet Count 253 X10^3/uL (150-400); Red Cell Distribution Width 25.7 % (11.6-14.8)
[2017-12-16 12:24] LABS: Anisocytosis 1+
[2017-12-16 12:49] LABS: HEMOLYSIS < 15 (0-50); Iron 76 ug/dL (49-181)
[2017-12-16 13:02] LABS: Percent Iron Saturation 19 % (20-50); Total Iron Binding Capacity 391 ug/dL (261-462); Transferrin 320 mg/dL (206-381)
== END ==
PROVIDERS: Family Provider Internal Medicine Cardiovascular Disease; PCP Internal Medicine; Visit Provider Internal Medicine
DX: D64.9 Anemia, unspecified (principal)
CPT/HCPCS: 36415; 83540; 83550; 85025

== ENCOUNTER → 2018-05-09 13:40 | Outpatient (CLI) | payer OTHER, SELFPAY ==
[2017-10-21 10:33] VITALS: BMI 26.2
[2018-05-09 15:10] LABS: Add Manual Diff / Slide Review NO; Basophils Absolute Auto 0 /uL (0-100); Basophils Percent Auto 0.5 % (0-2); Eosinophils Absolute Auto 300 /uL (0-450); Eosinophils Percent Auto 3.1 % (2-4); Hematocrit 42.7 % (41-53); Lymphocytes Absolute Auto 3500 /uL (1100-4500); Lymphocytes Percent Auto 41.2 % (25-40); Mean Corpuscular HGB Conc 32.8 % (30-36); Mean Corpuscular Hemoglobin 29.3 PG (26-34); Mean Corpuscular Volume 89.2 fL (80-100); Monocytes Absolute Auto 1400 /uL (0-900); Monocytes Percent Auto 15.8 % (3-14); Neutrophils Absolute Auto 3400 /uL (1500-7000); Neutrophils Percent Auto 39.4 % (50-75); Platelet Count 213 X10^3/uL (150-400); Red Blood Cell Count 4.78 X10^6/uL (4.5-5.9); Red Cell Distribution Width 16.1 % (11.6-14.8); White Blood Cell Count 8.6 X10^3/uL (4.5-11.0)
[2018-05-09 15:16] LABS: Cholesterol 113 mg/dL (140-199); HDL Cholesterol 42 mg/dL (40-60); LDL Cholesterol Calculated 49 mg/dL (<100); Triglycerides 111 mg/dL (35-150)
== END ==
PROVIDERS: Family Provider Internal Medicine Cardiovascular Disease; PCP Internal Medicine; Visit Provider Internal Medicine
DX: I48.91 Unspecified atrial fibrillation (principal); D64.9 Anemia, unspecified
CPT/HCPCS: 36415; 80061; 85025

== ENCOUNTER 2018-11-08 10:26 | Day surgery (SDC) | payer OTHER, SELFPAY ==
[2017-10-21 10:33] VITALS: BMI 26.2
[2018-11-08 11:21] VITALS: BP 147/86; PULSE 67; RESP 16; TEMP 36.1; O2SAT 99; BMI 26.5
[2018-11-08] MEDS: PROPARACAINE 0.5% OPHTH SOL 2 DROPS EYE-OP (11:37)
[2018-11-08] MEDS: CATARACT EYE COMPOUND (10 DROPS/SYRINGE) 3 DROPS EYE-OP ×3 (11:37→11:50)
--- NOTE | 2018-11-08 12:28 | PM.PREOP ---
Pre-operative Note Interval Note History & Physical reviewed/Exam performed by Physician: No Changes to H&P: No
--- NOTE | 2018-11-08 12:29 | PM.OP.1 ---
Operative Date/Time/Diagnoses Pre-op diagnosis: Nuclear cataract right eye Procedure & Clinicians Procedure: Cataract Surgery Same procedure as scheduled: Yes Surgeon: Contreras Colbert Anesthesia Type: MAC +/- and Sedation Operative Notes Procedure in detail: Patient brought to the operating suite. Tetracaine drops placed in the right eye. Patient was prepped and draped in sterile manner. Wire lid speculum was placed in the eye. Betadine drops were placed on the eye. This was irrigated. Lidocaine jelly was placed on the eye. A paracentesis port was created with a side-port blade. 0.1 mL 1% preservative free lidocaine was injected into the anterior chamber. The anterior chamber was deepened with viscoelastic. 2.6 mm keratome was used to create a temporal clear corneal incision. Cystotome and Utrata forceps were used to create continuous tear capsulorrhexis. Balanced salt solution was used to hydro dissect the nucleus. The nucleus was cracked with the miloop. The nucleus was very dense. The phacoemulsification handpiece was inserted and the nucleus was removed using the stop and chop technique. The irrigation aspiration handpiece was inserted and the remaining cortex was removed. Anterior chamber was deepened with viscoelastic. An Colin ZCB00 intraocular lens with a power of 19.5 was injected into the capsular bag. Irrigation aspiration handpiece was inserted and the remaining viscoelastic was removed. Incision was hydrated with balanced salt solution and found to be leak free with pressure with Weck-Nena sponges. 0.1 mL Vigamox injected anterior chamber. 0.3 mL Kenalog 10 mg was injected subconjunctivally. Lid speculum was removed. The patient left the operating room in excellent condition. Complications: none Post-operative Condition: stable Disposition: same day surgery
[2018-11-08] MEDS: CHONDROIDTIN/SOD HYALURONATE 1.05 ML SYRINGE INTRAOCULA (12:54)
[2018-11-08] MEDS: MOXIFLOXACIN INJ 5 MG/ML VIAL EYE-OP (12:54)
[2018-11-08] MEDS: LIDOCAINE JELLY 2% 5 ML 1 APPLIC TOP (12:54)
[2018-11-08] MEDS: BALANCED SALT IRRIG SOLN NO.2 500 ML, EPINEPHrine 1 MG IRR (12:55)
[2018-11-08] MEDS: TETRACAINE 0.5% OPHTH DROPS 4 ML 2 DROPS EYE-OP (12:55)
[2018-11-08] MEDS: TRIAMCINOLONE 50 MG/5 ML VIAL INJ (12:55)
[2018-11-08] MEDS: PHENYLEPHRINE/LIDOCAINE VIAL (OR) 0.2 ML EYE-OP (12:55)
[2018-11-08 13:05] VITALS: BP 134/84; PULSE 65; RESP 16; TEMP 36.2; O2SAT 98
== END 2018-11-08 13:20 | disposition home or self-care (01) ==
LOC: OR 10:28
PROVIDERS: Family Provider Internal Medicine Cardiovascular Disease; PCP Internal Medicine; Visit Provider Ophthalmology
PROC: (CPT 66984; principal; 2018-11-08 12:15)
DX: H25.11 Age-related nuclear cataract, right eye (principal)
CPT/HCPCS: 66984; J0171; J2250; J3301

== ENCOUNTER 2018-11-22 11:54 | Day surgery (SDC) | payer OTHER, SELFPAY ==
[2017-10-21 10:33] VITALS: BMI 26.2
[2018-11-22] MEDS: PROPARACAINE 0.5% OPHTH SOL 2 DROPS EYE-OP (12:30)
[2018-11-22] MEDS: CATARACT EYE COMPOUND (10 DROPS/SYRINGE) 3 DROPS EYE-OP (12:32)
[2018-11-22 12:33] VITALS: BMI 26.2
--- NOTE | 2018-11-22 12:33 | PM.PREOP ---
Pre-operative Note Interval Note History & Physical reviewed/Exam performed by Physician: No Changes to H&P: No
--- NOTE | 2018-11-22 12:37 | PM.OP.1 ---
Operative Date/Time/Diagnoses Pre-op diagnosis: Nuclear Cataract Left eye Post-op diagnosis: same Procedure & Clinicians Surgeon: Contreras Colbert Anesthesia Type: MAC +/- and Sedation Operative Notes Procedure in detail: Patient brought to the operating suite. Tetracaine drops placed in the left eye. Patient was prepped and draped in sterile manner. Wire lid speculum was placed in the eye. Betadine drops were placed on the eye. This was irrigated. Lidocaine jelly was placed on the eye. A paracentesis port was created with a side-port blade. 0.1 mL 1% preservative free lidocaine was injected into the anterior chamber. The anterior chamber was deepened with viscoelastic. 2.6 mm keratome was used to create a temporal clear corneal incision. Cystotome and Utrata forceps were used to create continuous tear capsulorrhexis. Balanced salt solution was used to hydro dissect the nucleus. The phacoemulsification handpiece was inserted and the nucleus was removed using the stop and chop technique. The irrigation aspiration handpiece was inserted and the remaining cortex was removed. Anterior chamber was deepened with viscoelastic. An Colin ZCB00 intraocular lens with a power of 19.0 was injected into the capsular bag. Irrigation aspiration handpiece was inserted and the remaining viscoelastic was removed. Incision was hydrated with balanced salt solution and found to be leak free with pressure with Weck-Nena sponges. 0.1 mL Vigamox injected anterior chamber. 0.3 mL Kenalog 10 mg was injected subconjunctivally. Lid speculum was removed. The patient left the operating room in excellent condition. Complications: none Post-operative Condition: stable Disposition: same day surgery
[2018-11-22 12:42] VITALS: BP 139/87; PULSE 65; RESP 15; TEMP 36.7; O2SAT 97
--- NOTE | 2018-11-22 12:52 | SUR.OPER ---
Supine on eye stretcher, head on extension cradle secured with tape. Arms tucked at sides with blanket. Pillow under knees.
[2018-11-22] MEDS: LIDOCAINE JELLY 2% 5 ML 1 APPLIC TOP (12:54)
[2018-11-22] MEDS: MOXIFLOXACIN INJ 5 MG/ML VIAL EYE-OP (12:54)
[2018-11-22] MEDS: CHONDROIDTIN/SOD HYALURONATE 1.05 ML SYRINGE INTRAOCULA (12:54)
[2018-11-22] MEDS: PHENYLEPHRINE/LIDOCAINE VIAL (OR) 0.2 ML EYE-OP (12:56)
[2018-11-22] MEDS: TRIAMCINOLONE 50 MG/5 ML VIAL INJ (12:56)
[2018-11-22] MEDS: TETRACAINE 0.5% OPHTH DROPS 4 ML 2 DROPS EYE-OP (12:56)
[2018-11-22] MEDS: BALANCED SALT IRRIG SOLN NO.2 500 ML, EPINEPHrine 1 MG IRR (12:58)
[2018-11-22 13:24] VITALS: BP 148/88; PULSE 79; RESP 18; TEMP 36.3; O2SAT 100
== END 2018-11-22 13:24 ==
PROVIDERS: Family Provider Internal Medicine Cardiovascular Disease; PCP Internal Medicine; Visit Provider Ophthalmology
PROC: (CPT 66984; principal; 2018-11-22 07:45)
DX: H25.12 Age-related nuclear cataract, left eye (principal); I51.9 Heart disease, unspecified; I48.91 Unspecified atrial fibrillation; D64.9 Anemia, unspecified; Z95.0 Presence of cardiac pacemaker
CPT/HCPCS: 66984; J0171; J2250; J3010; J3301

== ENCOUNTER → 2019-12-28 09:08 | Outpatient (CLI) | payer OTHER, SELFPAY ==
[2017-10-21 10:33] VITALS: BMI 26.2
[2019-12-28 10:32] LABS: Add Manual Diff / Slide Review NO; Basophils Absolute Auto 100 /uL (0-100); Basophils Percent Auto 0.9 % (0-2); Eosinophils Absolute Auto 300 /uL (0-450); Hematocrit 43.8 % (41-53); Hemoglobin 14.8 g/dL (13.5-17.5); Lymphocytes Absolute Auto 2600 /uL (1100-4500); Lymphocytes Percent Auto 36.9 % (25-40); Mean Corpuscular HGB Conc 33.7 % (30-36); Mean Corpuscular Hemoglobin 31.2 PG (26-34); Mean Corpuscular Volume 92.6 fL (80-100); Monocytes Absolute Auto 800 /uL (0-900); Monocytes Percent Auto 11.7 % (3-14); Neutrophils Absolute Auto 3300 /uL (1500-7000); Neutrophils Percent Auto 46.5 % (50-75); Platelet Count 234 X10^3/uL (150-400); Red Blood Cell Count 4.73 X10^6/uL (4.5-5.9); Red Cell Distribution Width 13.5 % (11.6-14.8); White Blood Cell Count 7.1 X10^3/uL (4.5-11.0)
[2019-12-28 12:07] LABS: Alanine Aminotransferase 16 IU/L (<50); Albumin Globulin Ratio 1.4 (1.0-2.8); Alkaline Phosphatase 84 U/L (38-126); Aspartate Aminotransferase 27 IU/L (17-59); BUN Creatinine Ratio 17.5 (6-22); Blood Urea Nitrogen 24 mg/dL (9-20); Calcium 9.6 mg/dL (8.4-10.2); Carbon Dioxide 28 mmol/L (22-32); Chloride 105 mmol/L (98-107); Cholesterol 126 mg/dL (140-199); Estimated Glomerular Filt Rate 49.9 mL/min (>60); Globulin 2.8 g/dL (1.7-4.1); Glucose 117 mg/dL (80-110); HDL Cholesterol 46 mg/dL (40-60); HEMOLYSIS < 15 (0-50); LDL Cholesterol Calculated 58 mg/dL (<100); Potassium 4.7 mmol/L (3.4-5.1); Sodium 137 mmol/L (137-145); Total Protein 6.8 g/dL (6.3-8.2); Triglycerides 111 mg/dL (35-150)
== END ==
PROVIDERS: Family Provider Internal Medicine Cardiovascular Disease; PCP Internal Medicine; Referring Provider Internal Medicine Cardiovascular Disease; Visit Provider Internal Medicine Cardiovascular Disease
DX: E78.5 Hyperlipidemia, unspecified (principal); I49.5 Sick sinus syndrome
CPT/HCPCS: 36415; 80053; 80061; 85025

== ENCOUNTER → 2020-05-03 12:58 | Outpatient (CLI) | payer OTHER, SELFPAY ==
[2017-10-21 10:33] VITALS: BMI 26.2
[2020-05-03] MEDS: COVID-19 VACC, Ad26(JANSSEN)/PF 0.5 ML IM (13:15)
== END ==
PROVIDERS: Family Provider Internal Medicine Cardiovascular Disease; PCP Internal Medicine; Visit Provider Internal Medicine
DX: Z23 Encounter for immunization (principal)
CPT/HCPCS: 0031A; 91303

== ENCOUNTER → 2020-08-30 11:07 | Outpatient (CLI) | payer OTHER, SELFPAY ==
[2017-10-21 10:33] VITALS: BMI 26.2
--- NOTE | 2020-08-30 | DI.RAD.S_ITS ---
PROCEDURE: XR CHEST 2V INDICATIONS: DYSPNEA ON EXERTION TECHNIQUE: 2 views of the chest were acquired. COMPARISON: [facility], CT, ANG CHEST/ABD W/WO CONTRAST (PNL), 04/12/2012, 14:07. [facility], CR, XR CHEST 1V, 10/14/2017, 10:11. FINDINGS: Surgical changes and devices: There is a cardiac pacemaker in appropriate position. Sternotomy and CABG.. Lungs and pleura: Lungs are clear. No pleural effusions or pneumothorax. Mediastinum: Mediastinal contours are normal. Heart size is normal. Bones and chest wall: No suspicious bony abnormalities. Soft tissues appear unremarkable. IMPRESSION: No acute cardiopulmonary disease. Dictated by: Alexandro Proctor M.D. on 08/30/2020 at 14:14 Approved by: Alexandro Proctor M.D. on 08/30/2020 at 14:15
== END ==
PROVIDERS: Family Provider Internal Medicine Cardiovascular Disease; PCP Internal Medicine; Referring Provider Internal Medicine; Visit Provider Internal Medicine
DX: R06.00 Dyspnea, unspecified (principal)
CPT/HCPCS: 71046

== ENCOUNTER → 2021-06-06 09:41 | Outpatient (CLI) | payer OTHER, SELFPAY ==
[2017-10-21 10:33] VITALS: BMI 26.2
[2021-06-06 10:28] LABS: Alanine Aminotransferase 20 IU/L (<50); Albumin 4.3 g/dL (3.5-5.0); Albumin Globulin Ratio 1.5 (1.0-2.8); Alkaline Phosphatase 78 U/L (38-126); Aspartate Aminotransferase 30 IU/L (17-59); BUN Creatinine Ratio 16.7 (6-22); Bilirubin Total 0.8 mg/dL (0.2-1.3); Blood Urea Nitrogen 25 mg/dL (9-20); Calcium 9.7 mg/dL (8.4-10.2); Carbon Dioxide 29 mmol/L (22-32); Chloride 108 mmol/L (98-107); Cholesterol 137 mg/dL (140-199); Estimated Glomerular Filt Rate 46 mL/min (>60); Globulin 2.8 g/dL (1.7-4.1); Glucose 113 mg/dL (80-110); HDL Cholesterol 59 mg/dL (40-60); HEMOLYSIS 19 (0-50); LDL Cholesterol Calculated 58 mg/dL (<100); Potassium 4.9 mmol/L (3.4-5.1); Sodium 143 mmol/L (137-145); Total Protein 7.1 g/dL (6.3-8.2); Triglycerides 100 mg/dL (35-150)
== END ==
PROVIDERS: Family Provider Internal Medicine Cardiovascular Disease; PCP Internal Medicine; Referring Provider Internal Medicine Cardiovascular Disease; Visit Provider Internal Medicine Cardiovascular Disease
DX: E78.5 Hyperlipidemia, unspecified (principal)
CPT/HCPCS: 36415; 80053; 80061

== ENCOUNTER 2022-09-21 14:29 | Emergency (ER) | payer OTHER, SELFPAY ==
[2017-10-21 10:33] VITALS: BMI 26.2
[2022-09-21 14:31] VITALS: BP 131/68; PULSE 56; RESP 16; TEMP 36.3; O2SAT 98; BMI 24.4
--- NOTE | 2022-09-21 15:04 | DI.RAD.S_ITS ---
PROCEDURE: XR ACUTE ABDOMEN SERIES INDICATIONS: abd cramping TECHNIQUE: One view chest and two views of the abdomen were acquired. COMPARISON: None. FINDINGS: Surgical changes and devices: Median sternotomy changes. Dual lead left-sided transvenous pacemaker. Surgical clips in the left upper quadrant of the abdomen. Chest: Lungs are clear. Mild biapical pleural plaquing. Heart size is normal. No pleural effusions. No pneumoperitoneum. Small hiatal hernia present. Abdomen: Increased quantity of solid stool throughout the colon. Paucity of small bowel gas. Visible organ shadows are normal. No unusual mass effect. Bones: Mild rightward lumbar scoliosis with asymmetric left-sided L3 vertebral body height loss. IMPRESSION: 1. No radiographic evidence of acute small bowel obstruction. 2. Mild colonic obstipation. 3. Hiatal hernia. Dictated by: Kellie Bates M.D. on 09/21/2022 at 16:23 Approved by: Kellie Bates M.D. on 09/21/2022 at 16:26
[2022-09-21 15:53] LABS: Add Manual Diff / Slide Review NO; Basophils Absolute Auto 200 /uL (0-100); Basophils Percent Auto 1.2 % (0-2); Eosinophils Absolute Auto 100 /uL (0-450); Eosinophils Percent Auto 0.6 % (2-4); Hematocrit 39.4 % (41-53); Hemoglobin 13.3 g/dL (13.5-17.5); Lymphocytes Absolute Auto 2500 /uL (1100-4500); Lymphocytes Percent Auto 16.4 % (25-40); Mean Corpuscular HGB Conc 33.8 % (30-36); Mean Corpuscular Hemoglobin 31.9 PG (26-34); Mean Corpuscular Volume 94.4 fL (80-100); Monocytes Absolute Auto 2300 /uL (0-900); Monocytes Percent Auto 14.6 % (3-14); Neutrophils Absolute Auto 10400 /uL (1500-7000); Neutrophils Percent Auto 67.2 % (50-75); Platelet Count 266 X10^3/uL (150-400); Red Blood Cell Count 4.17 X10^6/uL (4.5-5.9); Red Cell Distribution Width 13.6 % (11.6-14.8); White Blood Cell Count 15.5 X10^3/uL (4.5-11.0)
[2022-09-21 16:06] LABS: Alanine Aminotransferase 15 IU/L (<50); Albumin Globulin Ratio 1.3 (1.0-2.8); Alkaline Phosphatase 75 U/L (38-126); Aspartate Aminotransferase 22 IU/L (17-59); BUN Creatinine Ratio 14.4 (6-22); Blood Urea Nitrogen 21 mg/dL (9-20); Carbon Dioxide 26 mmol/L (22-32); Chloride 104 mmol/L (98-107); Estimated Glomerular Filt Rate 47 mL/min (>60); Glucose 120 mg/dL (80-110); HEMOLYSIS < 15 (0-50); Lipase 167 U/L (23-300); Potassium 4.2 mmol/L (3.4-5.1); Sodium 137 mmol/L (137-145)
--- NOTE | 2022-09-21 16:09 | ED.MALEGU ---
HPI - Male Genitourinary General Chief complaint: Urogenital-Male Stated complaint: CANT PEE Time Seen by Provider: 09/21/22 14:59 Source: patient Mode of arrival: Ambulatory History of Present Illness HPI Narrative: 82-year-old male former smoker with history of constipation, coronary artery disease, anemia presents with a chief complaint of difficulty producing a urine stream that seems to be increasing. He states that he frequently attempts to urinating can get some out but it only dribbles. He has some lower abdominal discomfort. Additionally he states that he is had firm stools for quite some time and has a hard time moving his bowels. He denies fever or chills. He denies nausea, vomiting or diarrhea. He is had no chest pain or shortness of breath. He is not dizzy nor weak or lightheaded. Related Data Home Medications Medication Instructions Recorded Confirmed atorvastatin 40 mg tablet 40 mg PO DAILY 10/14/17 11/22/18 omeprazole 20 mg capsule,delayed 20 mg PO DAILY 10/14/17 11/22/18 release metoprolol succinate 25 mg 25 mg PO DAILY 11/22/17 11/22/18 tablet,extended release 24 hr clopidogrel 75 mg tablet 75 mg PO DAILY 09/21/22 09/21/22 metoprolol succinate 25 mg 25 mg PO DAILY 09/21/22 09/21/22 tablet,extended release 24 hr oxycodone-acetaminophen 5 mg-325 1 tab PO QID PRN Pain (Scale Score 09/21/22 09/21/22 mg tablet 4-6) rivaroxaban 15 mg tablet (Xarelto) 15 mg PO DAILY 09/21/22 09/21/22 Allergies Allergy/AdvReac Type Severity Reaction Status Date / Time duloxetine [DULOXETINE] Allergy Intermediate ALMOST Verified 09/21/22 14:31 PASSED OUT ciprofloxacin [CIPROFLOXACIN] Allergy Mild Verified 09/21/22 14:31 penicillin V [PENICILLIN V] Allergy Unknown DIZZY Verified 09/21/22 14:31 Review of Systems Review of Systems Narrative: GENERAL: Denies chills, fatigue, malaise, fever, sweats. HEENT: Denies sinus pain, ear pain, sore throat, difficulty swallowing, dizziness. RESPIRATORY: Denies dyspnea, cough, wheezing, hemoptysis, sputum. CARDIOVASCULAR: Denies chest pain, palpitations, orthopnea, edema, GASTROINTESTINAL: See HPI : See HPI MUSCULOSKELETAL: denies weakness, joint pain, or bony pain SKIN: Denies rash, skin lesions, or other NEUROLOGIC: Denies weakness, headache, numbness, change in speech, confusion, seizures, incoordination. PSYCHIATRIC: No concerning psychosocial issues. 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) H/O bilateral inguinal hernia repair History of adenectomy History of colonoscopy History of esophagogastroduodenoscopy (EGD) History of thoracic aortic aneurysm repair (2016) Hx of CABG (2016) Hx of tonsillectomy Family History Mother Hypertension Diabetes mellitus Stroke Coronary artery disease Father Cancer Social History household members: significant other and other Smoking Status: Former smoker alcohol intake: current Smoking Status: Former smoker alcohol intake frequency: holidays/special occasions only Substance Use Type: does not use Exam Narrative Exam Narrative: GENERAL: [82] year old patient appears stated age. Well-developed patient, in no obvious distress, resting comfortably HEAD: Atraumatic. Normocephalic. EYES: Pupils equal round and reactive. Extraocular motions intact. No scleral icterus. No injection or drainage. ENT: Nose without bleeding, purulent drainage. Throat without erythema, tonsillar hypertrophy or exudate. Airway patent. NECK: Trachea midline. Non tender CARDIOVASCULAR: Regular rate and rhythm without murmurs, gallops, or rubs. RESPIRATORY: Clear to auscultation. Breath sounds equal bilaterally. No wheezes, rales, or rhonchi. GASTROINTESTINAL: Abdomen soft, non-tender, nondistended. Bowel sounds decreased throughout EXTREMITIES: No edema or joint tenderness. BACK: Nontender without deformity or crepitance. No flank tenderness. NEURO: AOx3. SKIN: No rash or erythema of visible areas Initial Vital Signs Initial Vital Signs: Vital Signs Temperature 97.3 F L 09/21/22 14:31 Pulse Rate 56 L 09/21/22 14:31 Respiratory Rate 16 09/21/22 14:31 Blood Pressure 131/68 09/21/22 14:31 Pulse Oximetry 98 09/21/22 14:31 Oxygen Delivery Method Room Air 09/21/22 14:31 Course Course Course Narrative: Initial bladder scan notes 70 mL of urine. Patient able to urinate, 70 mL measured, no [place] indicated Orders Ordered: ED Orders 09/21/22 15:04 XR acute abdomen series Stat 09/21/22 15:43 Complete Blood Count AUTO DIFF Stat Comprehensive Metabolic Panel Stat Lipase Stat 09/21/22 16:20 US renal complete Stat Vital Signs Vital signs: Vital Signs - 8 hr 09/21/22 14:31 09/21/22 16:34 Temperature 97.3 F L Pulse Rate 56 L 77 Respiratory Rate 16 16 Blood Pressure 131/68 135/75 Pulse Oximetry 98 99 Oxygen Delivery Method Room Air MDM - Male Genitourinary Lab Data 09/21/22 15:43 09/21/22 15:43 Labs: Lab Results 09/21/22 09/21/22 Range/Units 15:43 15:43 WBC 15.5 H (4.5-11.0) X10^3/uL RBC 4.17 L (4.5-5.9) X10^6/uL Hgb 13.3 L (13.5-17.5) g/dL Hct 39.4 L (41-53) % MCV 94.4 (80-100) fL MCH 31.9 (26-34) PG MCHC 33.8 (30-36) % RDW 13.6 (11.6-14.8) % Plt Count 266 (150-400) X10^3/uL Neut % (Auto) 67.2 (50-75) % Lymph % (Auto) 16.4 L (25-40) % [place] % (Auto) 14.6 H (3-14) % Eos % (Auto) 0.6 L (2-4) % Baso % (Auto) 1.2 (0-2) % Neut # (Auto) 75567 H (1657-3589) /uL Lymph # (Auto) 2500 (8214-0798) /uL [place] # (Auto) 2300 H (0-900) /uL Eos # (Auto) 100 (0-450) /uL Baso # (Auto) 200 H (0-100) /uL Sodium 137 (137-145) mmol/L Potassium 4.2 (3.4-5.1) mmol/L Chloride 104 (98-107) mmol/L Carbon Dioxide 26 (22-32) mmol/L BUN 21 H (9-20) mg/dL Creatinine 1.46 H (0.66-1.25) mg/dL Estimated GFR 47 L (>60) mL/min BUN/Creatinine Ratio 14.4 (6-22) Glucose 120 H (80-110) mg/dL Calcium 9.0 (8.4-10.2) mg/dL Total Bilirubin 1.0 (0.2-1.3) mg/dL AST 22 (17-59) IU/L ALT 15 (<50) IU/L Alkaline Phosphatase 75 (38-126) U/L Total Protein 7.0 (6.3-8.2) g/dL Albumin 4.0 (3.5-5.0) g/dL Globulin 3.0 (1.7-4.1) g/dL Albumin/Globulin Ratio 1.3 (1.0-2.8) Lipase 167 (23-300) U/L Urine Dip Bedside Urine Glucose Negative Bedside Urine Bilirubin - Negative Bedside Urine Ketone - Negative Urine Specific [place] 1.025 Bedside Urine Occult Blood - Negative Bedside Urine pH 6.0 Bedside Urine Protein +/- 15 Bedside Urine Urobilinogen - Negative Bedside Urine Nitrite - Negative Bedside Urine Leukocytes - Negative Esterase MDM Narrative Medical decision making narrative: CC: 82-year-old male complains of difficulty urinating and constipation Complicating co-morbidities: Known constipation, history of urinary retention, age, cardiac disease Data collected from: Patient Medical records reviewed: Prior notes reviewed in our EMR Differential considered, but not limited to: Urinary retention versus bowel obstruction versus constipation versus urinary tract infection versus other Exam documented above, pertinent findings include: Heart rate regular, lungs clear, patient awake and alert. Abdomen soft, bowel sounds present but decreased. Lab Test results independently reviewed as above. Pertinent findings: There is leukocytosis of 15.5 without left shift, electrolytes within normal, creatinine at 1.46 which appears baseline for him for the past few years Independently reviewed EKG as above Imaging studies independently reviewed: Bladder scan notes 70 mL of urine prior to him voiding 70 cc of urine. Acute abdominal series notes Re-evaluations: Patient initially with difficulty urinating but able to void 70 mL which is what is noted on bladder scan. Discussion: Patient with difficulty urinating is found to have 70 cc of urine in his bladder and then is able to void without difficulty. He also complains of constipation. His abdomen is soft and imaging demonstrates a nonspecific bowel gas pattern which is nonobstructive. He does have leukocytosis in the absence of a left shift and the etiology and importance of this is unknown at this time. He is had no fever chills and denies any weakness. No evidence of pneumonia on x-ray, no signs of urinary infection. Patient otherwise at baseline. Disposition: see below, along with detailed discharge instructions that have been reviewed with patient as well as indications for ED re-evaluation and additional outpatient follow up Discharge Plan Departure Patient Disposition: Home Clinical Impression: Constipation Instructions: DI for Constipation Activity Restrictions/Additional Instructions: *You have been diagnosed with [constipation and difficulty with urinating. As we discussed your history and physical exam are reassuring and there is no evidence of urinary retention or bowel obstruction.] *What to do: *Please continue to take your regular medications as directed. [ ] New medication prescriptions sent to your pharmacy: [ ] [ ] New medication written as a paper prescription [ ] No new medications given *Please follow up with your primary care provider in 2-3 days, call for an appointment. Let them know you were seen in the Emergency Department and that we ask that you be seen in follow up. We will electronically transmit a record of today's note if your PCP is in our system *You have been diagnosed with [ abdominal pain due to constipation ] *What to do: *Take over the counter medications as directed: 1. Metamucil - is a bulk forming laxative and adds fiber 2. Colace - softens your stool 3. Dulcolax suppository - stimulates your bowels *Follow up with your primary care provider in 2-3 days, call for appointment *Return to ER if you should have any new, worsening or concerning symptoms *Drink plenty of water and eat foods high in fiber *Stay as active as you can as this helps move your bowels as well Also as we have discussed, I have included the contact information for Urology, please call their office tomorrow, let them know that you were seen in the emergency department and we would like you seen in follow-up for help evaluating your difficulty producing a urine stream. I will electronically transmitted a copy of today's note Prescriptions: No Action atorvastatin 40 mg tablet 40 mg PO DAILY omeprazole 20 mg Capsule,Delayed Release(Dr/Ec) 20 mg PO DAILY metoprolol succinate 25 mg Tablet Extended Release 24 Hr 25 mg PO DAILY clopidogrel 75 mg tablet 75 mg PO DAILY oxycodone-acetaminophen 5-325 mg tablet 1 tab PO QID PRN (Reason: Pain (Scale Score 4-6)) metoprolol succinate 25 mg tablet extended release 24 hr 25 mg PO DAILY Xarelto 15 mg tablet 15 mg PO DAILY Referrals: Trang Navarro MD [Physician] - Stand Alone Forms: Patient Portal/API
--- NOTE | 2022-09-21 16:20 | DI.US.S_ITS ---
PROCEDURE: US RENAL COMPLETE INDICATIONS: RIGHT FLANK PAIN TECHNIQUE: Real-time scanning was performed of the kidneys and bladder, with image documentation. COMPARISON: None. FINDINGS: Kidneys: Kidneys are normal in size. Right kidney measures 8.6 cm long; left kidney measures 9.6 cm long. Right renal cortical thickness is 1.8 cm; left renal cortical thickness is 1.6 cm. Renal cortical echotexture is normal. No hydronephrosis or nephrolithiasis. No suspicious solid mass lesions. Bladder: Pre-void bladder volume is 58 mL. Pre-void images demonstrate no intraluminal masses or stones. Ureteral jets were not seen with color Doppler interrogation. (Of note, ureteral jets may not be detectable in up to 25% of cases due to insufficient differences in specific gravity between ureteral and bladder urine). Miscellaneous: No free pelvic fluid. IMPRESSION: 1. The kidneys are normal in appearance without hydronephrosis or renal stones. 2. The bladder is normal in appearance. Postvoid imaging was not performed as patient did not need to void. Dictated by: Joe Molina M.D. on 09/21/2022 at 17:05 Approved by: Joe Molina M.D. on 09/21/2022 at 17:07
[2022-09-21 16:34] VITALS: BP 135/75; PULSE 77; RESP 16; O2SAT 99
== END 2022-09-21 16:57 | disposition home or self-care (01) ==
PROVIDERS: Emergency Provider Emergency Medicine; Family Provider Internal Medicine Cardiovascular Disease
DX: K59.00 Constipation, unspecified (principal); R10.30 Lower abdominal pain, unspecified
CPT/HCPCS: 36415; 51798; 74022; 76770; 80053; 81003; 83690; 85025; 99283; 99284

== ENCOUNTER → 2023-01-23 11:38 | Outpatient (CLI) | payer OTHER, SELFPAY ==
[2017-10-21 10:33] VITALS: BMI 26.2
[2023-01-23 12:48] LABS: Prostate Specific Antigen 1.35 ng/mL (0.10-4.00)
== END ==
PROVIDERS: Family Provider Internal Medicine Cardiovascular Disease; PCP Internal Medicine; Referring Provider Specialist; Visit Provider Specialist
DX: N40.1 Benign prostatic hyperplasia with lower urinary tract symptoms (principal); N13.8 Other obstructive and reflux uropathy
CPT/HCPCS: 36415; 84153

== ENCOUNTER 2023-07-14 05:24 | Emergency (ER) | payer OTHER, SELFPAY ==
[2017-10-21 10:33] VITALS: BMI 26.2
[2023-07-14 05:37] VITALS: BP 129/75; PULSE 78; RESP 16; TEMP 36.4; O2SAT 98; BMI 24.3
--- NOTE | 2023-07-14 05:43 | ED_ITS ---
HPI - Extremity Problem General Chief complaint: Extremity Problem,Nontraumatic Stated complaint: blood poisoning Time Seen by Provider: 07/14/23 05:29 Source: patient Mode of arrival: Ambulatory History of Present Illness HPI Narrative: 83-year-old male who is here for evaluation of an infection to his right thumb and now streaking up his right arm. He states he went to his primary doctor yesterday. He was unsure exactly what happened but he thinks maybe it was when he was out gardening that he cut his thumb. He states his primary doctor tried to ?unroof? the wound that was there. Started him on amoxicillin. He has had 1 day this medicine. He woke up this morning noticing streak going going up his right arm. Related Data Home Medications Medication Instructions Recorded Confirmed atorvastatin 40 mg tablet 40 mg PO DAILY 10/14/17 02/02/23 clopidogrel 75 mg tablet 75 mg PO DAILY 09/21/22 02/02/23 metoprolol succinate 25 mg 25 mg PO DAILY 09/21/22 02/02/23 tablet,extended release 24 hr oxycodone-acetaminophen 5 mg-325 1 tab PO QID PRN Pain (Scale Score 09/21/22 02/02/23 mg tablet 4-6) Previous Rx's Medication Instructions Recorded tamsulosin 0.4 mg capsule 0.4 mg PO BEDTIME #90 caps 12/16/22 doxycycline hyclate 100 mg tablet 100 mg PO BID 7 days #14 tabs 07/14/23 Allergies Allergy/AdvReac Type Severity Reaction Status Date / Time duloxetine [DULOXETINE] Allergy Intermediate ALMOST Verified 09/21/22 14:31 PASSED OUT ciprofloxacin [CIPROFLOXACIN] Allergy Mild Verified 09/21/22 14:31 penicillin V [PENICILLIN V] Allergy Unknown DIZZY Verified 09/21/22 14:31 Review of Systems Review of Systems Narrative: See HPI Patient History Medical History BPH w urinary obs/LUTS Gastric reflux Symptomatic anemia Transient ischemic attack Gastroesophageal reflux disease Aortic stenosis IBS (irritable bowel syndrome) Chronic back pain Pericarditis Pacemaker (2016) Hypertension Coronary artery disease Surgical History History of esophagogastroduodenoscopy (EGD) History of colonoscopy H/O bilateral inguinal hernia repair History of adenectomy Hx of tonsillectomy History of thoracic aortic aneurysm repair (2016) H/O aortic valve replacement with porcine valve (2016) Hx of CABG (2016) Family History Mother Hypertension Diabetes mellitus Stroke Coronary artery disease Father Cancer Social History household members: significant other and other Smoking Status: Former smoker alcohol intake: current Smoking Status: Former smoker alcohol intake frequency: holidays/special occasions only Substance Use Type: does not use Exam Initial Vital Signs Initial Vital Signs: Vital Signs Temperature 97.5 F L 07/14/23 05:37 Pulse Rate 78 07/14/23 05:37 Respiratory Rate 16 07/14/23 05:37 Blood Pressure 129/75 07/14/23 05:37 Pulse Oximetry 98 07/14/23 05:37 Oxygen Delivery Method Room Air 07/14/23 05:37 Skin Other: Patient with streaking going up his right arm to his right elbow. Extrem Other: Patient has a obvious felon to his right thumb. Procedures Abscess I/D I&D #1: Site: other (Thumb) Side (if applicable): right Technique: incised with #11 blade Irrigation: No Packing used?: none Course Orders Ordered: Doxycycline Hyclate (Doxycycline Hyclate 100 Mg Tablet) 100 mg PO NOW ONE Stop: 07/14/23 05:44 Vital Signs Vital signs: Vital Signs - 8 hr 07/14/23 05:37 Temperature 97.5 F L Pulse Rate 78 Respiratory Rate 16 Blood Pressure 129/75 Pulse Oximetry 98 Oxygen Delivery Method Room Air MDM - Extremity (Nontraumatic) MDM Narrative Medical decision making narrative: Patient tolerated the incision and drainage without anesthesia. We were able to express quite a bit of purulent material from his thumb. He is nontoxic appe aring is afebrile. Not tachycardic. He does have streaking going up his right arm. I suspect that amoxicillin is not the best choice for this infection. Will start him on doxycycline. We will hold on admission to the hospital for now however patient was given strict return precautions. He expressed understanding and agreement with plan. Discharge Plan Departure Patient Disposition: Home Clinical Impression: Felon of finger of right hand, Cellulitis Instructions: DI for Cellulitis -- Adult Activity Restrictions/Additional Instructions: I recommend that you stop taking the amoxicillin and start taking the antibiotic that was prescribed today. Expect some drainage from the area that we drained on your thumb. You can wash your hands with soap and water as needed. Return to the emergency department for new or worsening symptoms. Prescriptions: New doxycycline hyclate 100 mg tablet 100 mg PO BID 7 Days Qty: 14 0RF No Action atorvastatin 40 mg tablet 40 mg PO DAILY clopidogrel 75 mg tablet 75 mg PO DAILY oxycodone-acetaminophen 5-325 mg tablet 1 tab PO QID PRN (Reason: Pain (Scale Score 4-6)) metoprolol succinate 25 mg tablet extended release 24 hr 25 mg PO DAILY tamsulosin 0.4 mg capsule 0.4 mg PO BEDTIME Qty: 90 3RF Referrals: Zhane Miller MD [Primary Care Provider] - Stand Alone Forms: Patient Portal/API
[2023-07-14] MEDS: DOXYCYCLINE HYCLATE 100 MG TABLET PO (05:49)
== END 2023-07-14 05:55 | disposition home or self-care (01) ==
PROVIDERS: Emergency Provider Emergency Medicine; Family Provider Internal Medicine Cardiovascular Disease; PCP Internal Medicine
DX: L03.011 Cellulitis of right finger (principal)
CPT/HCPCS: 10060; 99283

== ENCOUNTER → 2023-11-10 11:12 | Outpatient (CLI) | payer OTHER, SELFPAY ==
[2017-10-21 10:33] VITALS: BMI 26.2
--- NOTE | 2023-11-10 11:14 | DI.RAD.S_ITS ---
PROCEDURE: XR KNEE LT 4V INDICATIONS: Pain in left knee TECHNIQUE: 3 views of the knee were acquired. COMPARISON: None. FINDINGS: Bones: There are no osseous abnormalities. Joints: There is mild degenerative change patellofemoral and medial tibial femoral joint. Chondrocalcinosis present within the menisci. Small effusion noted. Soft tissues: Normal IMPRESSION: Mild degenerative change. 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 Small effusion. Dictated by: Brendan Zuniga M.D. on 11/11/2023 at 7:42 Approved by: Brendan Zuniga M.D. on 11/11/2023 at 7:43
== END ==
PROVIDERS: Family Provider Internal Medicine Cardiovascular Disease; PCP Internal Medicine; Referring Provider Internal Medicine; Visit Provider Internal Medicine
DX: M11.262 Other chondrocalcinosis, left knee (principal); M25.462 Effusion, left knee; M25.562 Pain in left knee
CPT/HCPCS: 73564

== ENCOUNTER → 2024-11-02 09:43 | Outpatient (CLI) | payer MEDICARE, SELFPAY ==
[2017-10-21 10:33] VITALS: BMI 26.2
--- NOTE | 2024-11-02 09:47 | DI.RAD.S_ITS ---
PROCEDURE: XR CERVICAL SPINE 4V OR 5V INDICATIONS: NECK PAIN TECHNIQUE: 5 total views of the cervical spine were acquired, including bilateral oblique views. COMPARISON: None. FINDINGS: Bones: No fractures or dislocations to the T1 level. Oblique images demonstrate no bony foraminal stenoses. Focal degenerative change is seen involving the C1-C2 interface anteriorly. There is moderate to severe disc space narrowing seen at C5-C6, with moderate disc space narrowing at C6-C7. On oblique images, there is at least moderate right-sided neural foraminal narrowing seen at C5-C6 and C6-C7. On the left, there is moderate neural foraminal narrowing at C3-C4, with at least moderate neural foraminal narrowing at C5-C6 and C6-C7. Sternotomy wires are seen. Soft tissues: No prevertebral soft tissue swelling. Pacer leads are partially seen. IMPRESSION: Cervical spine degenerative changes are seen, which are worst inferiorly. Dictated by: Oswaldo Dias M.D. on 11/02/2024 at 9:15 Approved by: Oswaldo Dias M.D. on 11/02/2024 at 9:16
== END ==
PROVIDERS: Family Provider Internal Medicine Cardiovascular Disease; PCP Internal Medicine; Referring Provider Physical Medicine & Rehabilitation; Visit Provider Physical Medicine & Rehabilitation
DX: M47.812 Spondylosis without myelopathy or radiculopathy, cervical region (principal); M54.2 Cervicalgia
CPT/HCPCS: 72050

== ENCOUNTER → 2024-12-14 16:03 | Outpatient (CLI) | payer MEDICARE, OTHER, SELFPAY ==
[2017-10-21 10:33] VITALS: BMI 26.2
--- NOTE | 2024-12-14 16:06 | DI.RAD.S_ITS ---
PROCEDURE: XR CHEST 2V INDICATIONS: PACEMAKER TECHNIQUE: 2 views of the chest were acquired. COMPARISON: [facility], , XR CHEST 2V, 08/30/2020, 11:13. FINDINGS: Surgical changes and devices: Pacemaker left chest. Sternotomy. Valve replacement. Lungs and pleura: Lungs are clear. No pleural effusions or pneumothorax. Mediastinum: Mediastinal contours are normal. Heart size is normal. Bones and chest wall: Degenerative changes of the visualized lumbar spine. No suspicious bony abnormalities. Soft tissues appear unremarkable. IMPRESSION: No acute cardiopulmonary abnormality is seen. Dictated by: Lela Green [facility] Interpreted: Ruben Aquino MD on 12/14/2024 at 16:41 Transcribed by: GIACOMO on 12/14/2024 at 16:46 Approved by: Ruben Aquino M.D. on 12/14/2024 at 20:02
== END ==
PROVIDERS: Family Provider Internal Medicine Cardiovascular Disease; PCP Internal Medicine; Referring Provider Internal Medicine Cardiovascular Disease; Visit Provider Internal Medicine Cardiovascular Disease
DX: Z09 Encounter for follow-up examination after completed treatment for conditions other than malignant neoplasm (principal); Z95.0 Presence of cardiac pacemaker
CPT/HCPCS: 71046